=== PATIENT | male | born 1965 | race Caucasian/White ===

== ENCOUNTER 2022-12-03 03:33 | Day surgery (SDC) | payer BC, SELFPAY ==
[2022-10-29 12:21] VITALS: BMI 33.5
[2022-12-03 07:44] VITALS: BMI 34.4
[2022-12-03 07:45] VITALS: BP 145/85; PULSE 82; RESP 16; TEMP 36.2; O2SAT 98
[2022-12-03] MEDS: LACTATED RINGERS 1,000 ML 150 ML IV CONT (07:54)
--- NOTE | 2022-12-03 08:00 | P.HP_ITS ---
History of Present Illness History of Present Illness Consent: Risks, benefits, and alternatives have been discussed and questions answered. Patient agrees to proceed with procedure. Chief complaint: neoplasm screening Narrative: Brayan Ward is a 57 year old male Presents for screening colonoscopy. Patient's current weight appetite and bowel movements are normal. Patient denies abdominal pain. He has had no bleeding. Family history noncontributory. Previous colonoscopy 2009 was unremarkable. Review of Systems Review of Systems: Review of systems noncontributory. [facility] Past Medical History Medical History (Updated 12/03/22 @ 08:02 by Duong Mulligan MD) GERD (gastroesophageal reflux disease) Obstructive sleep apnea Family History Family History (Updated 09/19/17 @ 14:47 by DOCTOR UNKNOWN) Father Diabetes mellitus Family history of chronic obstructive pulmonary disease Mother Cerebrovascular accident Social History Social History Years smoked: 23 Smoking status: Current every day smoker Tobacco type: cigarettes Alcohol intake: current Drinks per week: 1 Substance use type: does not use Living arrangements: with family Spiritual care concerns: No Meds Home Medications and Allergies Home Medications Medication Instructions Recorded Confirmed Type pantoprazole 40 mg tablet,delayed See Rx Instructions .Route 10/12/22 12/03/22 Rx release .COMPLEX #90 tabs ezetimibe 10 mg tablet 10 mg PO DAILY 10/29/22 12/03/22 History metoprolol succinate 25 mg 25 mg PO DAILY 10/29/22 12/03/22 History tablet,extended release 24 hr multivit with minerals-iron 18 1 tablet PO DAILY 10/29/22 12/03/22 History mg-folic ac 400 mcg-vit K 25 mcg tablet (Adults Multivitamin) Allergies Allergy/AdvReac Type Severity Reaction Status Date / Time Penicillins Allergy Unknown Unknown Verified 12/03/22 07:42 Vital Signs Vital Signs - 24 hr 12/03/22 07:45 Temperature 97.2 F L Pulse Rate 82 Respiratory Rate 16 Blood Pressure 145/85 H Pulse Oximetry 98 Oxygen Delivery Room Air Exam Narrative: Physical exam reveals patient to be alert. Vital signs stable. HEENT exam is unremarkable. Patient is anicteric. Lungs are clear to auscultation and percussion. Heart is without murmur or extra sounds. Abdomen bowel sounds are present soft nontender with no organomegaly. Digital external rectal exam is normal. Assessment and Plan Assessment and plan (1) Encounter for screening colonoscopy: Code(s): Z12.11 - Encounter for screening for malignant neoplasm of colon Status: Acute Assessment and Plan: Patient presents today for screening colonoscopy. He appears to be at average risk for colon polyps. Further recommendations may be given after endoscopy.
--- NOTE | 2022-12-03 08:07 | WPDANESEPPF ---
Anes - Initial Pre Proc Eval Procedure: Operation Date: 12/03/22 08:30 Proposed Procedures p Screening Colonoscopy - Duong Mulligan MD Date/Time: 12/03/22 08:07 Surgeon: Duong Mulligan MD Pre Op Diagnosis: neoplasm screening Patient Data Age: 57 Gender: M Height: 1.73 m Weight: 102.7 kg Last Vital Signs Temp 36.2 C L 12/03/22 07:45 Pulse 82 12/03/22 07:45 Resp 16 12/03/22 07:45 BP 145/85 H 12/03/22 07:45 Pulse Ox 98 12/03/22 07:45 O2 Del Method Room Air 12/03/22 07:45 Allergies Allergy/AdvReac Type Severity Reaction Status Date / Time Penicillins Allergy Unknown Unknown Verified 12/03/22 07:42 Home Medications Medication Instructions Recorded Confirmed Type pantoprazole 40 mg tablet,delayed See Rx Instructions .Route 10/12/22 12/03/22 Rx release .COMPLEX #90 tabs ezetimibe 10 mg tablet 10 mg PO DAILY 10/29/22 12/03/22 History metoprolol succinate 25 mg 25 mg PO DAILY 10/29/22 12/03/22 History tablet,extended release 24 hr multivit with minerals-iron 18 1 tablet PO DAILY 10/29/22 12/03/22 History mg-folic ac 400 mcg-vit K 25 mcg tablet (Adults Multivitamin) Patient hx anesthesia problems: none Family hx anesthesia problems: none Results Review: All pre-operative results and documents have been reviewed as part of the pre-operative evaluation. [facility] Past Medical History Medical History (Updated 12/03/22 @ 08:09 by Jaime Garcia MD) Atrial fibrillation s/p ablation GERD (gastroesophageal reflux disease) HTN (hypertension) Hypercholesterolemia Obesity Obstructive sleep apnea Family History Family History (Updated 09/19/17 @ 14:47 by DOCTOR UNKNOWN) Father Diabetes mellitus Family history of chronic obstructive pulmonary disease Mother Cerebrovascular accident Social History Social History Years smoked: 23 Smoking status: Current every day smoker Tobacco type: cigarettes Alcohol intake: current Drinks per week: 1 Substance use type: does not use Living arrangements: with family Spiritual care concerns: No Anes - Eval Final PreProcedure Day of Procedure 12/03/22 08:07 Patient weight: obese Heart: regular rate and rhythm Lungs: clear to auscultation and normal air movement Airway: Mallampati scale class II Neurological: alert and oriented Last oral intake: >/= 8 hours ASA classification: III Emergent: no Anesthetic plan: proceed Anesthesia type and monitoring: general GIVS Results Review: All pre-operative results and documents have been reviewed as part of the pre-operative evaluation. Informed Consent: The patient's anesthetic plan and its attendant risks and benefits were discussed with the patient/family/POA. Questions were solicited and answers provided to the satisfaction of the patient/family/POA.
[2022-12-03] MEDS: SIMETHICONE ORAL SUSPENSION 20 MG/0.3 ML 30 ML BOTTLE 0.6 ML IRRIGATION (08:36)
--- NOTE | 2022-12-03 08:47 | SUR.OPER ---
dr diaz informed that ascending polyp was not retrieved. voiced understanding.
[2022-12-03 08:49] VITALS: BP 119/79; PULSE 72; RESP 21; O2SAT 93
[2022-12-03 08:59] VITALS: BP 113/74; PULSE 70; RESP 19; O2SAT 95
[2022-12-03 09:09] VITALS: BP 145/89; PULSE 75; RESP 22; O2SAT 97
== END 2022-12-03 09:15 | disposition home or self-care (01) ==
PROVIDERS: PCP Family Medicine; Visit Provider Internal Medicine Gastroenterology
PROC: 0DJD8ZZ Inspection of Lower Intestinal Tract, Via Natural or Artificial Opening Endoscopic (ICD-10-PCS; CPT 45378; principal; 2022-12-03 08:30)
DX: Z12.11 Encounter for screening for malignant neoplasm of colon (principal); D12.5 Benign neoplasm of sigmoid colon; K63.5 Polyp of colon; K57.30 Diverticulosis of large intestine without perforation or abscess without bleeding; K64.8 Other hemorrhoids; I10 Essential (primary) hypertension; E78.00 Pure hypercholesterolemia, unspecified; G47.33 Obstructive sleep apnea (adult) (pediatric); F17.210 Nicotine dependence, cigarettes, uncomplicated; E66.9 Obesity, unspecified; Z68.34 Body mass index [BMI] 34.0-34.9, adult
CPT/HCPCS: 45385; 88305; J2704; J7120

== ENCOUNTER 2023-03-07 18:52 | Emergency (ER) | payer BC, SELFPAY ==
[2023-03-07 18:57] VITALS: BP 144/85; PULSE 62; RESP 16; TEMP 36.3; O2SAT 100
--- NOTE | 2023-03-07 18:57 | ED.EYEPROB ---
HPI - Eye Problem General Chief complaint: Eye Problems Stated complaint: Lt Eye Irritation Time Seen by Provider: 03/07/23 18:57 Source: patient Mode of arrival: ambulatory Limitations: no limitations History of Present Illness HPI Narrative: 58-year-old male presents with complaint of left eye pain. States that he was sawing wood today, not wearing safety glasses, in thinks a piece flew into left eye. Injury happened approximately 10:00 a.m. today. 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 Reports vision change to left eye only due to pain and irritation. Reports redness, clear drainage. All systems reviewed and negative except as noted above. Related Data Home Medications Medication Instructions Recorded Confirmed ezetimibe 10 mg tablet 10 mg PO DAILY 10/29/22 03/07/23 metoprolol succinate 25 mg 25 mg PO DAILY 10/29/22 03/07/23 tablet,extended release 24 hr multivit with minerals-iron 18 1 tablet PO DAILY 10/29/22 03/07/23 mg-folic ac 400 mcg-vit K 25 mcg tablet (Adults Multivitamin) flash glucose scanning reader 03/07/23 03/07/23 (FreeStyle Aster 2 [place]) flash glucose sensor (FreeStyle 03/07/23 03/07/23 Aster 2 Sensor kit) Allergies Allergy/AdvReac Type Severity Reaction Status Date / Time Penicillins AdvReac Mild Rash Verified 03/07/23 18:57 Review of Systems Review of Systems: CONSTITUTIONAL: Denies fever, chills, or sweats. EYES: Denies visual changes . Reports redness redness, clear drainage, pain to left eye. ENT: Denies rhinorrhea, congestion, sore throat, or otalgia. CARDIOVASCULAR: Denies chest pain, palpitations, or edema. RESPIRATORY: Denies cough or dyspnea. GASTROINTESTINAL: Denies abdominal pain, nausea, vomiting, or diarrhea. GENITOURINARY: Denies dysuria or hematuria. SKIN: Denies rash or itching. MUSCULOSKELETAL: Denies back pain, joint pain, or myalgia. NEUROLOGIC: Denies headache, numbness, or weakness. PSYCHIATRIC: Denies anxiety or depression. All other systems reviewed are negative, except as documented in HPI. [facility] Past Medical History Medical History (Updated 03/07/23 @ 19:21 by Deanna Hinson NP) Atrial fibrillation s/p ablation GERD (gastroesophageal reflux disease) HTN (hypertension) Hypercholesterolemia Obesity Obstructive sleep apnea Family History Family History (Updated 09/19/17 @ 14:47 by DOCTOR UNKNOWN) Father Diabetes mellitus Family history of chronic obstructive pulmonary disease Mother Cerebrovascular accident Social History Social History Years smoked: 23 Smoking status: Current every day smoker Tobacco type: cigarettes Alcohol intake: current Drinks per week: 1 Substance use type: does not use Living arrangements: with family Spiritual care concerns: No Comments At time of signature, agree with nursing past medical, surgical, social and family history. There is no relevant family history pertinent to the presenting complaint. Exam Narrative: GENERAL: This is a well-nourished, well-developed patient, in no apparent distress. HEAD: normocephalic, atraumatic. EYES: PERRL. Sclera A conjunctiva erythematous the left eye with clear drainage. Vision is grossly intact. EARS: External ears normal NOSE: External nose normal NECK: Neck supple, non-tender without lymphadenopathy, masses or thyromegaly. CARDIOVASCULAR: Regular rate and rhythm without murmurs, gallops, or rubs. RESPIRATORY: Clear to auscultation. Breath sounds equal bilaterally. No wheezes, rales, or rhonchi. SKIN: warm, Dry, intact with no suspicious lesions or rash, good texture and turgor. NEURO: awake, alert, and oriented to person, place and time. There were no obvious focal neurologic abnormalities. EXTREMITIES: No joint tenderness, effusion, or edema noted. Course Course Level of Care: Express Care Visit Vital Signs Vital signs: Vital Signs Temperature 36.3 C L 03/07/23 18:57 Puls
== END 2023-03-07 19:22 | disposition home or self-care (01) ==
PROVIDERS: Emergency Provider Nurse Practitioner Family; PCP Family Medicine
DX: T15.02XA Foreign body in cornea, left eye, initial encounter (principal); X58.XXXA Exposure to other specified factors, initial encounter; F17.210 Nicotine dependence, cigarettes, uncomplicated; K21.9 Gastro-esophageal reflux disease without esophagitis; I10 Essential (primary) hypertension; E78.00 Pure hypercholesterolemia, unspecified; E66.9 Obesity, unspecified; Z68.32 Body mass index [BMI] 32.0-32.9, adult
CPT/HCPCS: 65220; 99213; A9270; G0463

== ENCOUNTER 2025-08-22 15:27 | Emergency (ER) | payer BC, SELFPAY ==
[2025-08-22 15:37] VITALS: BP 136/70; PULSE 81; RESP 18; TEMP 36.5; O2SAT 98
--- NOTE | 2025-08-22 15:37 | ED.WOUNDLAC ---
HPI - Wound/Laceration General Chief Complaint: Wound/Laceration Stated Complaint: cut finger Time Seen by Provider: 08/22/25 15:37 Source: patient Mode of arrival: ambulatory Limitations: no limitations History of Present Illness HPI narrative: 60 year-old male presents with laceration to right middle finger.Injury happened approx. 2 to 3 hrs ago. 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 Had taken the safety off of the sharp cutting mechanism. Bleeding controlled on arrival. ROM and distal NV intact. All systems reviewed and negative except as noted above. Related Data Home Medications ?Medication ?Instructions ?Recorded ?Confirmed ?Last Taken ?Type ezetimibe 10 mg tablet 10 mg PO DAILY 10/29/22 08/11/25 Unknown History Held on 01/13/23. Instructions: Changed physicians metoprolol succinate 25 mg 25 mg PO DAILY 10/29/22 08/11/25 Unknown History tablet,extended release 24 hr Held on 01/13/23. Instructions: Changed physicians multivit with minerals-iron 18 1 tablet PO DAILY 10/29/22 08/11/25 Unknown History mg-folic ac 400 mcg-vit K 25 mcg tablet (Adults Multivitamin) flash glucose scanning reader 03/07/23 08/11/25 Unknown History (FreeStyle Aster 2 [place]) flash glucose sensor (FreeStyle 03/07/23 08/11/25 Unknown History Aster 2 Sensor kit) finasteride 5 mg tablet 5 mg PO DAILY 05/02/24 08/11/25 Unknown History pantoprazole 40 mg tablet,delayed 40 mg PO QAM 05/02/24 08/11/25 Unknown History release Allergies Allergy/AdvReac Type Severity Reaction Status Date / Time Penicillins Allergy Mild Rash Verified 08/22/25 15:37 [facility] Past Medical History Medical History Atrial fibrillation s/p ablation Hypercholesterolemia HTN (hypertension) Obesity GERD (gastroesophageal reflux disease) Obstructive sleep apnea Surgical History Surgical History History of shoulder surgery History of foot surgery History of carpal tunnel release of both wrists History of right knee joint replacement Family History Family History Father Diabetes mellitus Family history of chronic obstructive pulmonary disease Mother Cerebrovascular accident Social History Social History (Updated 08/07/25 @ 15:06 by Sharri Roy [facility]) Years smoked: 23 Smoking status: Former smoker Tobacco type: cigarettes Second hand tobacco smoke exposure: No Alcohol intake: never Substance use: never Substance use type: does not use Do You Feel Safe in your Home?: Yes Lack of Transportation: No Lack of Food: Never True Current Housing: I Have Housing Concerned About Future Housing: No Difficulty Paying Gas/Electric Bills: No Difficulty Paying for Meds: No Currently Unemployed: No Education: High School Diploma/GED Difficulty w/ Childcare or Family Care: No Living arrangements: with family Occupation/Education: occupation 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 There is no relevant family history pertinent to the presenting complaint. Exam Narrative: GENERAL: This is a well-nourished, well-developed patient, in no apparent distress. HEAD: normocephalic, atraumatic. EYES: PERRL. Sclera clear/white. Vision is grossly intact. EARS: External ears normal NOSE: External nose normal NECK: Neck supple, non-tender without lymphadenopathy, masses or thyromegaly. CARDIOVASCULAR: Regular rate and rhythm without murmurs, gallops, or rubs. RESPIRATORY: Clear to auscultation. Breath sounds equal bilaterally. No wheezes, rales, or rhonchi. SKIN: warm, Dry, intact with no suspicious lesions or rash, good texture and turgor. 2cm laceration to posterior aspect R middle finger. NEURO: awake, alert, and oriented to person, place and time. There were no obvious focal neurologic abnormalities. EXTREMITIES: No joint tenderness, effusion, or edema noted. Extrem: Hand/finger images:  1. laceration Course Course Level of Care: Express Care Visit Vital Signs Vital signs: Vital Signs Temperature 36.5 C 08/22/25 15:37 Pulse Rate 81 08/22/25 15:37 Respiratory Rate 18 08/22/25 15:37 Blood Pressure 136/70 08/22/25 15:37 Pulse Oximetry 98 08/22/25 15:37 Oxygen Delivery Room Air 08/22/25 15:37 Temperature 36.5 C 08/22/25 15:37 Pulse Rate 81 08/22/25 15:37 Respiratory Rate 18 08/22/25 15:37 Blood Pressure 136/70 08/22/25 15:37 Pulse Oximetry 98 08/22/25 15:37 Oxygen Delivery Room Air 08/22/25 15:37 Reviewed Procedures Laceration Laceration 1: Date: 08/22/25 Time: 16:05 Site: hand (middle finger) Side (If applicable): right Size (cm): 2 Description: irregular Depth: simple, single layer Local Anesthetic: lidocaine 1% Amount of anesthesia used (mL): 3 Pre-repair: wound explored and irrigated ====== Skin Level ====== Skin layer closed with: nylon Size (cm): 4-0 Number of sutures: 7 Technique: simple, interrupted ====== Subcutaneous Layer ====== ====== Muscle Layer ====== ====== Tendon Layer ====== MDM - Wound/Laceration MDM Narrative Medical decision making narrative: wound repaired with sutures. Patient tolerated well. Range of motion and distal neurovascularly intact pre and postprocedure. Educated on suture care and follow-up for suture removal. Discharge Plan Discharge Clinical Impression: Laceration of right middle finger Qualifiers: Encounter type: initial encounter Damage to nail status: without damage Foreign body presence: without foreign body Qualified Code(s): S61.212A - Laceration without foreign body of right middle finger without damage to nail, initial encounter Patient Disposition: Home Condition: Stable Instructions: Antibiotic Form, Care For Your Stitches (ED) Additional Instructions: Follow-up in 7-10 days for suture removal. Keep wound clean and dry. If you have signs of infection such as redness, warmth, swelling, drainage follow-up with your primary care physician. Patient Language: [place] Prescriptions: No Action (DME) FreeStyle Aster 2 Sensor Kit MISCELLANEOUS (DME) FreeStyle Aster 2 [place] Misc MISCELLANEOUS pantoprazole 40 mg tablet,delayed release (DR/EC) 40 mg PO QAM finasteride 5 mg tablet 5 mg PO DAILY Adults Multivitamin 18 mg iron-400 mcg-25 mcg Tablet 1 tablet PO DAILY metoprolol succinate 25 mg tablet extended release 24 hr 25 mg PO DAILY ezetimibe 10 mg tablet 10 mg PO DAILY diclofenac sodium 75 mg tablet,delayed release (DR/EC) 75 mg PO BID Qty: 60 2RF Follow-up/Referrals: Tosha,Jonathan Jaquez MD [Primary Care Provider, Unknown] Time of Disposition: 16:12
[2025-08-22] MEDS: LIDOCAINE 1% LOCAL INJ 2 ML AMPUL 4 ML INFILTRATE (15:52)
[2025-08-22] MEDS: TETANUS,DIPHTHERIA,AC PERTUSSIS ADULT (0.5 ML) BOOSTRIX IM (15:53)
--- OUTSIDE RECORDS SUMMARY | 2025-08-22 17:30 | XMS_ITS | Clinical Summary ---
Author Organization [address] Address [address] [place] [id number] Care Team Providers Care Sliver Lapper Name Role Phone Jonathan Givens MD Primary Care Provider [phone] Allergies Active Allergy Reactions Criticality Noted Date Comments Atorvastatin Joint pain Low 10/21/2022 Caused knee pain Penicillins Other (See comments),Unknown Low 2017 As a child Medications multivit with minerals/lutein (MULTIVITAMIN 50 PLUS ORAL) multivitamin 0 Active finasteride (PROSCAR) 5 mg tablet Take 1 tablet (5 mg total) by mouth daily 3 Active aspirin 81 mg enteric coated tablet Take 1 tablet (81 mg total) by mouth daily Active clindamycin (CLEOCIN) 300 mg capsule Take 1 capsule (300 mg total) by mouth 4 (four) times a day Active diclofenac DR (VOLTAREN) 75 mg EC tablet Take 1 tablet (75 mg total) by mouth 2 (two) times a day 4 Active metoprolol XL (TOPROL-XL) 25 mg extended release tablet TAKE 1 TABLET DAILY 90 tablet [address] (PROTONIX) 40 mg EC tablet TAKE 1 TABLET DAILY 100 tablet 1 5 Active ezetimibe (ZETIA) 10 mg tablet TAKE 1 TABLET DAILY 100 tablet 1 5 Active Active Problems Problem Noted Date Diagnosed Date Benign prostatic hyperplasia with urinary freque ncy 09/22/2023 Weight gain 07/29/2023 Arthralgia of both knees 02/04/2023 023 Postoperative care for cataract 11/09/2022 Bicipital tenosynovitis 11/09/2022 Carpal tunnel syndrome 11/09/2022 Degenerative joint disease of shoulder region Disorder of rotator cuff 11/09/2022 Essential hypertension 08/25/2022 Gastroesophageal reflux disease without esophagi tis 08/25/2022 Mixed hyperlipidemia 12/09/2020 Tobacco dependence 12/09/2020 ASHD (arteriosclerotic heart disease) 11/23/2019 Resting tremor 08/21/2019 SVT (supraventricular tachycardia) 08/21/2019 Irregular heart rate 07/27/2018 Resolved Problems Problem Noted Date Diagnosed Date Resolved Date Osteoarthritis 11/09/2022 08/17/2024 Hyperglycemia 10/21/2022 08/17/2024 Elevated BP without diagnosis of hypertension 09/01/20 20 08/17/2024 Overweight 08/21/2019 08/17/2024 Encounters Date Type Department Care Team Description 08/22/2025 Results Follow-Up [facility] at [address] [place] [address] Danna Stephens PA Comprehensive metabolic panel, CBC with auto differential, Lipid panel from Last 3 Months Immunizations Immunization Administration Dates Next Due Influenza, Unspecified 08/17/2024(Deferr ed: Patient Refused),08/07/2023(Deferred: Patient decision),08/07/2023(Deferred: Patient Refused),11/07/2021(Deferred: Patient Refused),11/07/2020(Deferred: Patient Refused) Surgical History Surgery Date Site/Laterality Comments CARPAL TUNNEL RELEASE ROTATOR CUFF REPAIR 11/07/2000 - 12/07/2000 Bilateral VASECTOMY 1993 JOINT REPLACEMENT 10/11/2023 Right TKR Medical History Medical History Date Comments GERD (gastroesophageal reflux disease) 2008 Sleep apnea Family History Medical History Relation Name Comments Cancer Mother's Brother Markel Solano Relation Name Status Comments Father Mother Mother's Brother Markel Solano Social History Tobacco Use Types Packs/Day Years Used Date Smoking Tobacco: Former Cigarettes 1.3 25 0 07/23/1998 - 07/23/2023 Smokeless Tobacco: Never Tobacco Cessation:Counseling Given: Not Answered AUDIT-C Answer Date Recorded Q1: How often do you have a drink containing alc ohol? Monthly or less 09/22/2023 Q2: How many drinks containi ng alcohol do you have on a typical day when you are drinking? 1 or 2 09/22/2023 Q3: How often do you have si x or more drinks on one occasion? Never 09/22/2023 PHQ-2 Answer Date Recorded PHQ-2 Total Score (If total score is 3 or more points, staff should administer the PHQ-9) 0 05/21/2025 Sex and Gender Information Value Date Recorded Sex Assigned at Not on file Legal Sex Male 12:43 AM BOSS DYER Gender Identity Male 11/07/2021 12:33 PM BOSS DYER Sexual Orientation Straight 11/07/2021 12 :33 PM [employer] Obstetrics History Last Filed Vital Signs Vital Sign Reading Time Taken Comments Blood Pressure 138/96 05/21/2025 4:48 PM CDT Pulse 68 05/21/2025 4:48 PM CDT Temperature 36.6 C (97.8 F) 05/21/2025 4:48 PM CDT Respiratory Rate 16 11/25/2023 4:20 PM BOSS DYER Oxygen Saturation 96% 05/21/2025 4:48 PM CDT Inhaled Oxygen Concentration - - Weight 100.2 kg (220 lb 14.4 oz) 05/21/2025 4:48 PM CDT Height 172.7 cm (5' 8) 05/21/2025 4:48 PM CDT Body Mass Index 33.59 05/21/2025 4:48 PM CDT Plan of Treatment Health Maintenance Due Date Last Done Comments Hepatitis C Screening 1965 DTaP/Tdap/Td Vaccine (1 - Tdap) 01/08/1976 Hepatitis B Screening 1983 Lung Cancer Screening 2015 Zoster Vaccine (1 of 2) 2015 Prostate Cancer Screening-PSA 04/23/2025 04/23/2023, 07/08/2022 Influenza Vaccine (#1) 2025 Depression Screening 05/21/2026 05/21/2025, 09/14/2024, 08/17/2024, Additional history exists Regular Well Visit/Exam 18-64 05/21/2026 05/21/2025, 02/18/2022 Colon Cancer Screening-Colonoscopy 12/03/2032 12/03/2022 Pneumococcal vaccine <65 Aged Out No longer eligible based on patient's age to complete this topic Procedures Procedure Name Priority Date/Time Associated Diagnosis Comments HEMOGLOBIN A1C Routine 08/21/2025 6:30 AM CDT TEST AUTHORIZATION Routine 08/21/2025 6: 30 AM CDT LIPID PANEL Routine 08/21/2025 6:30 AM CDT Annual physical exam CBC WITH AUTO DIFFERENTIAL Routine 08/21/2025 6:30 AM CDT Annual physical exam COMPREHENSIVE METABOLIC PANEL Routine 08/21/2025 6:30 AM CDT Annual physical exam PSA SCREEN Routine 04/23/2023 7:46 AM CDT COLONOSCOPY Routine 12/03/2022 from Last 3 Months or Most Recently Relevant to Health Maintenance Results * TEST AUTHORIZATION (08/21/2025 6:30 AM CDT) Test name HEMOGLOBIN A1c [facility] TEST CODE: [id number] [facility] CLIENT CONTACT: LUCAS [facility] Report Always Message Signature [facility] Comment: The laboratory testing on this patient was verbally requested or confirmed by the ordering physician or his or her authorized sales training representative after contact with an employee of [facility]. Federal regulations require that we maintain on file written authorization for all laboratory testing. Accordingly we are asking that the ordering physician or his or her authorized sales training representative sign a copy of this report and promptly return it to the client evaluator. Signature: Comment [facility] Comment: Fax number: [phone] 08/21/2025 6:30 AM CDT 08/21/2025 6:31 AM CDT Narrative [facility] - 08/22/2025 12:52 PM CDT FASTING:YES FASTING: YES us Jonathan Givens MD LAB BLOOD ORDERABLES Final Re sult [facility] [address] [place] [phone] * CBC with auto differential (08/21/2025 6:30 AM CDT) [facility] WBC 8.2 3.8 - 10.8 Thousand/u L [facility] RBC, POC 5.14 4.20 - 5.80 Million/uL [facility] Hgb 15.2 13.2 - 17.1 g/dL [facility] Hct 46.8 38.5 - 50.0 % [facility] MCV 91.1 80.0 - 100.0 fL [facility] MCH 29.6 27.0 - 33.0 pg [facility] MCHC 32.5 32.0 - 36.0 g/dL [facility] Comment: For adults, a slight decrease in the calculated MCHC value (in the range of 30 to 32 g/dL) is most likely not clinically significant; however, it should be interpreted with caution in correlation with other red cell parameters and the patient's clinical condition. Rdw 12.2 11.0 - 15.0 % [facility] Platelets 309 140 - 400 Thousand/u L [facility] MPV 10.4 7.5 - 12.5 fL [facility] Neutrophils, abs 4,936 1,500 - 7,800 cells/uL [facility] Lymphocytes, abs 2,312 850 - 3,900 cells/uL [facility] Monocyte abs 705 200 - 950 cells/uL [facility] Eosinophils, abs 164 15 - 500 cells/uL [facility] Basophils, abs 82 0 - 200 cells/uL [facility] Neutrophils 60.2 % [facility] Lymphocyte pct 28.2 % [facility] Monocytes 8.6 % [facility] Eosinophils 2.0 % [facility] Basophils 1.0 % [facility] Blood 08/21/2025 6:30 AM CDT 08/21/2025 6:31 AM CDT Narrative [facility] - 08/22/2025 12:52 PM CDT FASTING:YES FASTING: YES Jonathan Givens MD LAB BLOOD ORDERABLES Final Re sult Performing Organization Address [facility] de Phone Number [facility] [address] [place] [address] * (ABNORMAL) Hemoglobin A1c (08/21/2025 6:30 AM CDT) Hgb A1C 6.1(H) <5.7 % [facility] Comment: For someone without known diabetes, a hemoglobin A1c value between 5.7% and 6.4% is consistent with prediabetes and should be confirmed with a follow-up test. For someone with known diabetes, a value <7% indicates that their diabetes is well controlled. A1c targets should be individualized based on duration of diabetes, age, comorbid conditions, and other considerations. This assay result is consistent with an increased risk of diabetes. Currently, no consensus exists regarding use of hemoglobin A1c for diagnosis of diabetes for children. 08/21/2025 6:30 AM CDT 08/21/2025 6:31 AM CDT Narrative [facility] - 08/22/2025 12:52 PM CDT FASTING:YES FASTING: YES Jonathan Givens MD LAB BLOOD ORDERABLES Final Re sult Performing Organization Address [facility] Co de Phone Number [facility] [address] [place] [address] * (ABNORMAL) Lipid panel (08/21/2025 6:30 AM CDT) Cholesterol 197 <200 mg/dL [facility] HDL 68 > OR = 40 mg/dL [facility] Triglycerides 116 <150 mg/dL [facility] LDL 108(H) mg/dL (calc) [facility] Comment: Reference range: <100 Desirable range <100 mg/dL for primary prevention; <70 mg/dL for patients with CHD or diabetic patients with > or = 2 CHD risk factors. LDL-C is now calculated using the Paresh-Burns calculation, which is a validated novel method providing better accuracy than the Friedewald equation in the estimation of LDL-C. Paresh SS et al. KORY. 2013;310(64): 2484-7926 (http://education.Spoonfed/faq/NUW161) Chol/HDL ratio 2.9 <5.0 (calc) [facility] Non-HDL, (LDL+VLDL) 129 <130 mg/dL (calc) [facility] Comment: For patients with diabetes plus 1 major ASCVD risk factor, treating to a non-HDL-C goal of <100 mg/dL (LDL-C of <70 mg/dL) is considered a therapeutic option. Blood 08/21/2025 6:30 AM CDT 08/21/2025 6:31 AM CDT Narrative [facility] - 08/22/2025 12:52 PM CDT FASTING:YES FASTING: YES Jonathan Givens MD LAB BLOOD ORDERABLES Final Re sult [facility] [address] [place] [address] * (ABNORMAL) Comprehensive metabolic panel (08/21/2025 6:30 AM CDT) [facility] Glucose 130(H) 65 - 99 mg/dL [facility] Comment: Fasting reference interval For someone without known diabetes, a glucose value >125 mg/dL indicates that they may have diabetes and this should be confirmed with a follow-up test. BUN 25 7 - 25 mg/dL [facility] Creatinine 1.03 0.70 - 1.35 mg/dL [facility] eGFR 83 > OR = 60 mL/min/1.7 3m2 [facility] BUN/creat ratio SEE NOTE: 6 - 22 (calc) [facility] Comment: Not Reported: BUN and Creatinine are within reference range. Sodium 140 135 - 146 mmol/L [facility] Potassium, pl 4.6 3.5 - 5.3 mmol/L [facility] Chloride 103 98 - 110 mmol/L [facility] CO2 29 20 - 32 mmol/L [facility] Calcium 9.5 8.6 - 10.3 mg/dL [facility] Protein, sr 6.3 6.1 - 8.1 g/dL [facility] Albumin 4.3 3.6 - 5.1 g/dL [facility] GLOBULIN 2.0 1.9 - 3.7 g/dL (calc) [facility] Alb/glob ratio 2.2 1.0 - 2.5 (calc) [facility] Bilirubin, total 0.4 0.2 - 1.2 mg/dL [facility] Alk phos 58 35 - 144 U/L [facility] AST 23 10 - 35 U/L [facility] ALT (SGPT) 33 9 - 46 U/L [facility] Blood 08/21/2025 6:30 AM CDT 08/21/2025 6:31 AM CDT Narrative [facility] - 08/22/2025 12:52 PM CDT FASTING:YES FASTING: YES Jonathan Givens MD LAB BLOOD ORDERABLES Final Re sult [facility] [address] [address] [facility] [place] [address] * (ABNORMAL) PSA screen (04/23/2023 7:46 AM CDT) PSA 4.86(H) < OR = 4.00 ng/mL [facility] Comment: The total PSA value from this assay system is standardized against the WHO standard. The test result will be approximately 20% lower when compared to the equimolar-standardized total PSA ([facility] [place]). Comparison of serial PSA results should be interpreted with this fact in mind. This test was performed using the Siemens chemiluminescent method. Values obtained from different assay methods cannot be used interchangeably. PSA levels, regardless of value, should not be interpreted as absolute evidence of the presence or absence of disease. 04/23/2023 7:46 AM CDT 04/23/2023 7:46 AM CDT Narrative [facility] - 04/24/2023 10:42 AM CDT FASTING:YES FASTING: YES Jonathan Givens MD LAB BLOOD ORDERABLES Final Re sult [facility] [address] [address] [facility] [place] [address] * Colonoscopy (12/03/2022) Anatomical Region Laterality Modality Other Historical Provider ENDOSCOPY PROCEDURES Suzi l Result from Last 3 Months or Most Recently Relevant to Health Maintenance Insurance Measy OOS Measy O[employer] Care Teams Sliver Lapper Relationship Specialty Start Date End Date Jonathan Givens MD PCP - General Family Medicine 02/16/22
--- OUTSIDE RECORDS SUMMARY | 2025-08-22 17:30 | XMS_ITS | Encounter Summary ---
Author Organization [facility] Address [address] [place] [address] Care Team Providers Care Personnel Generalist Manager Name Role Phone Ck Thomson MD Unavailable [phone] Jonathan Givens MD Primary Care Provider Encounter Details Date Type Department Care Team (Late st Contact Info) Description 07/19/2022 [facility] [address] [address] Chaz Mendoza MA Social History Tobacco Use Types Packs/Day Years Used Date Smoking Tobacco: Every Day Cigarettes 1.5 28 Smokeless Tobacco: Never Comments:30 cigarettes a day Alcohol Use Standard Drinks/Week Comments Yes 0 (1 standard drink = 0.6 oz pur e alcohol) occ Sex and Gender Information Value Date Recorded Sex Assigned at Not on file Legal Sex Male 1:37 PM CDT Gender Identity Not on file Sexual Orientation Not on file Occupation Industry Job Start Date Job End Date Not on file Not on file Not on file Not on file COVID-19 Exposure Response Date Recorded In the last 10 days, have yo u been in contact with someone who was confirmed or suspected to have Coronavirus/COVID-19? No / Unsure 07/06/2022 7:29 AM CDT documented as of this encounter Functional Status * RETIRED Are you deaf or do you have serious difficulty hearing Answer Date of Assessment Author Status No 06/26/2019 12:00 PM CDT Acti ve * RETIRED Are you blind or do you have serious difficulty seeing, even when wearing glasses? Answer Date of Assessment Author Status No 06/26/2019 12:00 PM CDT Acti ve * Do you have serious difficulty walking or climbing stairs? Answer Date of Assessment Author Status No 06/26/2019 12:00 PM CDT Bhavani Mathias RN Active * Do you have difficulty dressing or bathing? Answer Date of Assessment Author Status No 06/26/2019 12:00 PM CDT Bhavani Mathias RN Active * Because of a physical, mental, or emotional condition, do you have difficulty doing errands alone such as visiting a doctor's office or shopping? Answer Date of Assessment Author Status No 06/26/2019 12:00 PM CDT Bhavani Mathias RN Active documented as of this encounter Mental Status * Because of a physical, mental, or emotional condition, do you have serious difficulty concentrating, remembering, or making decisions? Answer Entry Date Author Status No 06/26/2019 12:00 PM CDT Bhavani Mathias RN Active documented in this encounter Plan of Treatment Not on file documented as of this encounter Procedures Procedure Name Priority Date/Time Associated Diagnosis Comments COMPREHENSIVE METABOLIC PANEL Routine 01/25/2024 LIPID PANEL Routine 01/25/2024 COMPREHENSIVE METABOLIC PANEL Routine 04/23/2023 LIPID PANEL Routine 04/23/2023 CBC, MANUAL DIFF Routine 04/23/2023 THYROXINE, TOTAL Routine 04/23/2023 THYROID STIM HORMONE TSH Routine 04/23/2023 CATECHOLAMINES URINE 24 HR Routine 07/10/2022 VMA URINE 24 HR Routine 07/10/2022 VMA URINE 24 HR Routine 07/10/2022 METANEPHRINES URINE 24 HR Routine 07/10/2022 documented in this encounter Results * LIPID PANEL (01/25/2024) CHOLESTEROL 165 HDL 69 TRIGLYCERIDES 73 NON HDL CHOLESTEROL 96 LDL (CALCULATED) 81 01/25/2024 [facility] History Genericprovider LABORATORY Final Result * COMPREHENSIVE METABOLIC PANEL (01/25/2024) SODIUM S/P/B 143 POTASSIUM S/P/B 4.3 CO2 30 CHLORIDE S/P/B 103 GLUCOSE 133 mg/dL CALCIUM S/P/B 9.8 BUN 22 CREATININE S/P/B 1.0 0.7 - 1.3 EGFR NON-AFR. AMER. 87 <=90 ALKALINE PHOSPHATASE S/P/B 62 ALT 26 AST 18 BILIRUBIN TOTAL S/P/B 0.5 ALBUMIN S/P/B 4.4 3.5 - 5.0 TOTAL PROTEIN S/P/B 6.4 GLOBULIN 2.0 01/25/2024 Count includes the [facility] Genericprovider LABORATORY Final Result * THYROXINE, TOTAL (04/23/2023) TOTAL T4 5.6 04/23/2023 Result [facility] History Genericprovider LABORATORY Final Result * COMPREHENSIVE METABOLIC PANEL (04/23/2023) SODIUM S/P/B 140 GLUCOSE 122 mg/dL AST 25 BUN 20 CREATININE S/P/B 0.98 0.7 - 1.3 CALCIUM S/P/B 9.5 POTASSIUM S/P/B 4.7 CHLORIDE S/P/B 106 ALT 33 GFR ESTIMATE 89 Narrative Resulting Agency Comment Default History Genericprovider LABORATORY Edited Result - Final * LIPID PANEL (04/23/2023) CHOLESTEROL 205 TRIGLYCERIDES 88 HDL 59 LDL (CALCULATED) 127 NON HDL CHOLESTEROL 146 Narrative Resulting Agency Comment [facility] History Genericprovider LABORATORY Edited Result - Final * CBC, MANUAL DIFF (04/23/2023) WBC 7.3 HGB 15.9 HCT 48.1 PLT 303 Narrative Resulting Agency Comment Default History Genericprovider LABORATORY Edited Result - Final * THYROID STIM HORMONE, TSH (04/23/2023) TSH 1.33 Narrative Resulting Agency Comment Default History Genericprovider LABORATORY Edited Result - Final * CATECHOLAMINES URINE 24 HR (07/10/2022) EPINEPHRINE (U) 7 2 - 24 NOREPINEPHRINE URINE/24H 73 15 - 100 TOTAL CATECHOLAMINES S/P/B 80 26 - 121 DOPAMINE URINE/24H 232 52 - 480 URINE SPECIMEN / Unknown 07/10/2022 [facility] URINE ORDERABLES Final Resul t * VMA URINE 24 HR (07/10/2022) VANILLYLMANDELIC ACID 24 HR URINE 3.6 <=6.0 URINE SPECIMEN / Unknown 07/10/2022 [facility] URINE ORDERABLES Final Resul t * METANEPHRINES URINE 24 HR (07/10/2022) NORMETANEPHRINE (U) 24 HRS 468 122 - 676 METANEPHRINES TOTAL (U) 610 224 - 832 METANEPHRINE (U) 24 HR 142 90 - 315 URINE SPECIMEN / Unknown 07/10/2022 [facility] URINE ORDERABLES Final Resul t * VMA URINE 24 HR (07/10/2022) VANILLYLMANDELIC ACID 24 HR URINE 3.6 <=6.0 URINE SPECIMEN / Unknown 07/10/2022 [facility] URINE ORDERABLES Final Resul t documented in this encounter Visit Diagnoses Not on filedocumented in this encounter Additional Health Concerns Infection Onset Date Last Indicated Resolved Time COVID-19 Rule Out 09/10/2022 09/10/2022 09/10/2022 11:30 AM CDT documented as of this encounter Care Teams Personnel Generalist Manager Relationship Specialty Start Date End Date Jonathan Givens MD [address] [facility] [address] [place] [address] PCP - General FAMILY PRACTICE 03/08/22 Ck Thomson MD [address] [facility] [address] [place] [phone] [place] [employer] CARDIOVASCULAR DISEASE 07/26/18 documented as of this encounter
--- OUTSIDE RECORDS SUMMARY | 2025-08-22 17:30 | XMS_ITS | Clinical Summary ---
Author Organization [facility] Address [facility] [place] [address] Care Team Providers Care Painter Tumbling Barrel Name Role Phone Ck Thomson MD Unavailable Jonathan Givens MD Primary Care Provider [phone] Allergies Active Allergy Reactions Criticality Noted Date Comments Atorvastatin Joint Pain 10/21/2022 Caused knee pain Penicillins Unknown,Other (see comment) Low 018 As a child Medications pantoprazole 40 MG tablet Take 1 tablet (40 mg total) by mouth daily. 30 tablet 07/27/2018 Active Multiple Vitamin (DAILY VITAMIN) Tab Take 1 tablet by mouth daily. 30 tablet 07/27/2018 Active ezetimibe (ZETIA) 10 MG tablet Take 1 tablet (10 mg total) by mouth daily. 08/25/2022 Active metoprolol succinate ER (TOPROL-XL) 25 MG 24 hr tablet Take 1 tablet (25 mg total) by mouth daily. 02/20/2023 Active finasteride (PROSCAR) 5 MG tablet Take 1 tablet (5 mg total) by mouth daily. 07/26/2023 Active ibuprofen (MOTRIN) 200 MG tablet Take 1 tablet (200 mg total) by mouth daily. Active albuterol sulfate HFA 108 (90 Base) MCG/ACT inhaler Inhale 2 puffs into the lungs. 11/25/2023 Active aspirin EC (ECOTRIN) 81 MG tablet Take 1 tablet (81 mg total) by mouth daily. Active Active Problems Problem Noted Date Diagnosed Date Hyperglycemia 10/21/2022 Status post radiofrequency ablation for arrhythm ia 10/18/2022 Essential hypertension 08/25/2022 Mixed hyperlipidemia 12/09/2020 Tobacco dependence 12/09/2020 Elevated BP without diagnosis of hypertension ASHD (arteriosclerotic heart disease) 11/23/2019 SVT (supraventricular tachycardia) 08/21/2019 Overweight 08/21/2019 Resting tremor 08/21/2019 Irregular heart rate 07/27/2018 Resolved Problems Problem Noted Date Diagnosed Date Resolved Date Imbalance 11/23/2019 07/02/2022 Unstable angina 06/26/2019 07/02/2022 Chest pain in adult 06/26/2019 07/02/20 Chest pain at rest 07/27/2018 Pressure in chest 07/27/2018 07/02/2022 Palpitations 07/27/2018 07/02/2022 Family History Relation Status Comments Brother Alive Father Maternal Grandfather Maternal Grandmother Mother Paternal Grandfather Paternal Grandmother Sister 1 Alive Sister 2 Alive Sister 3 Alive Social History Tobacco Use Types Packs/Day Years Used Date Smoking Tobacco: Every Day Cigarettes 1 28 Smokeless Tobacco: Never Tobacco Cessation:Ready to Q uit: Not Asked; Counseling Given: Not Answered Comments:20 cigarettes a day Alcohol Use Standard Drinks/Week [...] file Not on file Not on file Last Filed Vital Signs Vital Sign Reading Time Taken Comments Blood Pressure 142/98 02/03/2024 10:20 AM CDT Pulse 56 02/03/2024 10:20 AM CDT Temperature 36.8 C (98.2 F) 08/22/2023 12:36 PM CDT Respiratory Rate 20 08/22/2023 3:45 PM CDT Oxygen Saturation 99% 02/03/2024 10:20 AM CDT Inhaled Oxygen Concentration - - Weight 102.5 kg (226 lb) 02/03/2024 10:20 AM CDT Height 172.7 cm (5' 8) 02/03/2024 10:20 AM CDT Body Mass Index 34.36 02/03/2024 10:20 AM CDT Plan of Treatment Health Maintenance Due Date Last Done Comments Colorectal Cancer Screening Colonoscopy (10 Years) 1965 Annual Physical 01/08/1968 Hepatitis C 1983 DTaP, Tdap and Td Vaccines (1 - Tdap) 01/08/1984 Pneumococcal Vaccine: 50+ Years (1 of 2 - PCV) 01/08/1984 Zoster Vaccines (1 of 2) 2015 RSV Immunization or 60+ Years (1 - Risk 60-74 years 1-dose series) 2025 ASCVD LDL 01/24/2025 01/25/2024, 11/2 , 04/23/2023, Additional history exists COVID-19 Vaccine ( - 2023- season) 2025 Influenza Adult (#1) 2025 Meningococcal B Vaccine Aged Out No l onger eligible based on patient's age to complete this topic Meningococcal Vaccine Aged Out No jamal dimitry eligible based on patient's age to complete this topic RSV Immunizations Under 20 Months Aged Out No longer eligible based on patient's age to complete this topic Procedures Procedure Name Priority Date/Time Associated Diagnosis Comments LIPID PANEL Routine 01/25/2024 from Last 3 Months or Most Recently Relevant to Health Maintenance Results * LIPID PANEL (01/25/2024) CHOLESTEROL 165 HDL 69 TRIGLYCERIDES 73 NON HDL CHOLESTEROL 96 LDL (CALCULATED) 81 01/25/2024 us Default History Genericprovider LABORATORY Final Result from Last 3 Months or Most Recently Relevant to Health Maintenance Insurance [facility] Advance Directives * Full Code (Latest Code Status on File) Date Activated Date Inactivated Comments 08/22/2023 12:42 PM 08/22/2023 6:08 PM * Full Code Date Activated Date Inactivated Comments 09/10/2022 1:46 PM 09/10/2022 7:07 PM * Full Code Date Activated Date Inactivated Comments 06/26/2019 3:32 PM 06/27/2019 2:39 PM Care Teams Painter Tumbling Barrel Relationship Specialty Start Date End Date Jonathan Givens MD [address] [facility] [address] [place] [address] PCP - General FAMILY PRACTICE 03/08/22 Ck Thomson MD 3 [facility] [address] [place] [address] [place] Housekeeping Aid CARDIOVASCULAR DISEASE 07/26/18
--- OUTSIDE RECORDS SUMMARY | 2025-08-22 17:30 | XMS_ITS | Encounter Summary ---
Author Organization [facility] Address [address] [place] [address] Care Team Providers Care Metal Work Duct Installer Name Role Phone Michael Cardenas MD Primary Care Provider [phone] Ck Thomson MD Unavailable [phone] Jonathan Givens MD Primary Care Provider [phone] Encounter Details Date Type Department Care Team (Late st Contact Info) Description 07/27/2018 Abstract [facility] at [address] [id number] Chaz Mendoza [place] Social History Tobacco Use Types Packs/Day Years Used Date Smoking Tobacco: Every Day Cigarettes Smokeless Tobacco: Never Alcohol Use Standard Drinks/Week Comments Yes 0 (1 standard drink = 0.6 oz pur e alcohol) Sex and Gender Information Value Date Recorded Sex Assigned at Not on file Legal Sex Male 1:37 PM CDT Gender Identity Not on file Sexual Orientation Not on file documented as of this encounter Plan of Treatment Not on file documented as of this encounter Procedures Procedure Name Priority Date/Time Associated Diagnosis Comments CBC (OUTSIDE LAB) Routine 07/22/2018 BASIC METABOLIC PANEL Routine 07/22/2018 documented in this encounter Results * BASIC METABOLIC PANEL (07/22/2018) SODIUM S/P/B 141 POTASSIUM S/P/B 3.8 CO2 24 CHLORIDE S/P/B 107 GLUCOSE 131 mg/dL CALCIUM S/P/B 9.1 BUN 20 CREATININE S/P/B 1.15 0.7 - 1.3 EGFR AFR. AMER. 84 EGFR NON-AFR. AMER. 73 <=90 07/22/2018 us Doc [facility] Abstract LABORATORY Final Result * CBC (OUTSIDE LAB) (07/22/2018) WBC 13.10 HGB 16.4 HCT 47 PLT 341 07/22/2018 us Doc [facility] Abstract LAB-OUTSIDE/ABSTRACTED Final Result documented in this encounter Visit Diagnoses Not on filedocumented in this encounter Additional Health Concerns Infection Onset Date Last Indicated Resolved Time COVID-19 Rule Out 09/10/2022 09/10/2022 09/10/2022 11:30 AM CDT documented as of this encounter Care Teams Metal Work Duct Installer Relationship Specialty Start Date End Date Michael Cardenas MD [address] [address] PCP - General FAMILY PRACTICE 07/26/18 03/07/22 Jonathan Givens MD [address] [facility] [address] [place] [address] PCP - General FAMILY PRACTICE 03/08/22 Ck Thomson MD 3 [facility] [address] [place] [id number] [place] Field Marketing Representative CARDIOVASCULAR DISEASE 07/26/18 documented as of this encounter
--- OUTSIDE RECORDS SUMMARY | 2025-08-22 17:30 | XMS_ITS | Encounter Summary ---
Author Organization [facility] Healthcare Address [address] [place] [address] Care Team Providers Care Collection Systems Consultant Name Role Phone Jonathan Givens MD Primary Care Provider [phone] Encounter Details Date Type Department Care Team (Late st Contact Info) Description 08/22/2025 Results Follow-Up [facility] Family Medicine at [address] [place] [address] [address] [place] [address] Comprehensive metabolic panel, CBC with auto differential, Lipid panel Social History Tobacco Use Types Packs/Day Years Used Date Smoking Tobacco: Former Cigarettes 1.3 25 0 07/23/1998 - 07/23/2023 Smokeless Tobacco: Never AUDIT-C Answer Date Recorded Q1: How often [...] on file Legal Sex Male 12:43 AM CERTIFIED CORPORATE TRAVEL EXECUTIVE Gender Identity Male 11/07/2021 12:33 PM CERTIFIED CORPORATE TRAVEL EXECUTIVE Sexual Orientation Straight 11/07/2021 12 :33 PM CERTIFIED CORPORATE TRAVEL EXECUTIVE documented as of this encounter Plan of Treatment Not on file documented as of this encounter Visit Diagnoses Not on filedocumented in this encounter Care Teams Collection Systems Consultant Relationship Specialty Start Date End Date Jonathan Givens MD PCP - General Family Medicine 02/16/22 documented as of this encounter
--- OUTSIDE RECORDS SUMMARY | 2025-08-22 17:31 | XMS_ITS | Encounter Summary ---
Author Organization [facility] Address [address] [place] [address] Care Team Providers Care Windows Desktop Engineer Name Role Phone Ck Thomson MD Unavailable [phone] Jonathan Givens MD Primary Care Provider [phone] Encounter Details Date Type Department Care Team (Late st Contact Info) Description 05/26/2023 Pretty Simple Message Enc [facility], [address] [address] [employer]ter[employer]orenae[employer]yes[employer], [facility] Provider Echocardiogram Social History Tobacco Use Types Packs/Day Years Used Date Smoking Tobacco: Every Day Cigarettes 1 28 Smokeless Tobacco: Never Comments:20 cigarettes a day Alcohol Use Standard [...] file Not on file Not on file documented as of this encounter Functional Status [...] on filedocumented in this encounter Care Teams Windows Desktop Engineer Relationship Specialty Start Date End Date Jonathan Givens MD [address] [facility] [address] [place] [address] PCP - General FAMILY PRACTICE 03/08/22 Ck Thomson MD 3 [facility] [address] [place] [phone] [place] [employer] Marketing Coordinator CARDIOVASCULAR DISEASE 07/26/18 documented as of this encounter
--- OUTSIDE RECORDS SUMMARY | 2025-08-22 17:31 | XMS_ITS | Encounter Summary ---
Author Organization [facility] Address [address] [place] [address] Care Team Providers Care Wind Operations Manager Name Role Phone Michael Cardenas MD Primary Care Provider [phone] Ck Thomson MD Unavailable [phone] Jonathan Givens MD Primary Care Provider [phone] Encounter Details Date Type Department Care Team (Late st Contact Info) Description 11/06/2019 Abstract [facility] at [address] [address] Chaz Mendoza [place] Social History Tobacco Use [...] Associated Diagnosis Comments COMPREHENSIVE METABOLIC PANEL Routine 09/26/2023 LIPID PANEL Routine 09/26/2023 CBC, MANUAL DIFF Routine 09/26/2023 COMPREHENSIVE METABOLIC PANEL Routine 10/02/2021 LIPID PANEL Routine 10/02/2021 LIPID PANEL Routine 08/27/2020 CK (CPK) Routine 08/27/2020 ALT/SGPT Routine 08/27/2020 COMPREHENSIVE METABOLIC PANEL Routine 02/21/2020 LIPID PANEL Routine 02/21/2020 LIPID PANEL Routine 11/05/2019 D-DIMER, QUANTITATIVE Routine 11/05/2019 documented in this encounter Results * COMPREHENSIVE METABOLIC PANEL (09/26/2023) SODIUM S/P/B 138 GLUCOSE 145 mg/dL AST 32 BUN 16 CREATININE S/P/B 0.87 0.7 - 1.3 CALCIUM S/P/B 9.9 POTASSIUM S/P/B 4.3 CHLORIDE S/P/B 102 ALT 31 GFR ESTIMATE >60 us Default History Genericprovider LABORATORY Edited Result - Final * LIPID PANEL (09/26/2023) CHOLESTEROL 187 TRIGLYCERIDES 104 HDL 54 LDL (CALCULATED) 112 us Default History Genericprovider LABORATORY Edited Result - Final * CBC, MANUAL DIFF (09/26/2023) WBC 6.7 HGB 15.4 HCT 44.9 PLT 307 us Default History Genericprovider LABORATORY Edited Result - Final * (ABNORMAL) COMPREHENSIVE METABOLIC PANEL (10/02/2021) SODIUM S/P/B 141 POTASSIUM S/P/B 4.6 CO2 28 CHLORIDE S/P/B 108 GLUCOSE 128 mg/dL CALCIUM S/P/B 9.4 BUN 21 CREATININE S/P/B 0.98 0.7 - 1.3 EGFR AFR. AMER. 99(A) <=90 EGFR NON-AFR. AMER. 86 <=90 ALKALINE PHOSPHATASE S/P/B 59 ALT 31 AST 21 BILIRUBIN TOTAL S/P/B 0.7 ALBUMIN S/P/B 4.2 3.5 - 5.0 TOTAL PROTEIN S/P/B 6.1 GLOBULIN 1.9 10/02/2021 us Doc [facility] Abstract LABORATORY Final Result * LIPID PANEL (10/02/2021) CHOLESTEROL 156 HDL 58 TRIGLYCERIDES 58 NON HDL CHOLESTEROL 98 LDL (CALCULATED) 85 10/02/2021 us Doc [facility] Abstract LABORATORY Final Result * LIPID PANEL (08/27/2020) CHOLESTEROL 146 100 - 199 HDL 58 >39 TRIGLYCERIDES 88 0 - 149 LDL (CALCULATED) 71 0 - 99 08/27/2020 us Doc [facility] Abstract LABORATORY Final Result * CK (CPK) (08/27/2020) CPK 127 41 - 331 08/27/2020 us Camera [employer] [facility] LABORATORY Edited Resul t - Final * ALT/SGPT (08/27/2020) ALT 26 0 - 44 08/27/2020 [facility] LABORATORY Final Result * LIPID PANEL (02/21/2020) CHOLESTEROL 124 100 - 199 HDL 58 >39 TRIGLYCERIDES 61 0 - 149 LDL (CALCULATED) 54 0 - 99 02/21/2020 us Doc [facility] Abstract LABORATORY Final Result * COMPREHENSIVE METABOLIC PANEL (02/21/2020) SODIUM S/P/B 142 134 - 144 POTASSIUM S/P/B 4.7 3.5 - 5.2 CO2 27 20 - 29 CHLORIDE S/P/B 104 96 - 106 GLUCOSE 131 65 - 99 mg/dL CALCIUM S/P/B 9.7 8.7 - 10.2 BUN 17 6/24 CREATININE S/P/B 1.03 0.7 - 1.3 EGFR AFR. AMER. 94 EGFR NON-AFR. AMER. 81 <=90 ALKALINE PHOSPHATASE S/P/B 71 39 - 117 ALT 30 0 - 44 AST 26 0 - 40 BILIRUBIN TOTAL S/P/B 0.5 3.8 - 4.9 ALBUMIN S/P/B 4.2 3.5 - 5.0 TOTAL PROTEIN S/P/B 6.3 6.0 - 8.5 02/21/2020 [facility] LABORATORY Edited Resul t - Final * D-DIMER, QUANTITATIVE (11/05/2019) D-DIMER 0.24 0.00 - 0.49 11/05/2019 us Doc [facility] Abstract LABORATORY Final Result * LIPID PANEL (11/05/2019) CHOLESTEROL 256 100 - 199 HDL 61 >39 TRIGLYCERIDES 121 0 - 149 LDL (CALCULATED) 171 0 - 99 11/05/2019 us Doc [facility] Abstract LABORATORY Final Result documented in this encounter Visit Diagnoses Not on filedocumented in this encounter Additional Health Concerns Infection Onset Date Last Indicated Resolved Time COVID-19 Rule Out 09/10/2022 09/10/2022 09/10/2022 11:30 AM CDT documented as of this encounter Care Teams Wind Operations Manager Relationship Specialty Start Date End Date Michael Cardenas MD [address] [address] PCP - General FAMILY PRACTICE 07/26/18 03/07/22 Jonathan Givens MD [address] [facility] [address] [place] [address] PCP - General FAMILY PRACTICE 03/08/22 Ck Thomson MD 3 [facility] [address] [place] [phone] [place] Reversal Print Inspector CARDIOVASCULAR DISEASE 07/26/18 documented as of this encounter
--- OUTSIDE RECORDS SUMMARY | 2025-08-22 17:31 | XMS_ITS | Encounter Summary ---
Author Organization [facility] Address [address] [place] [address] Care Team Providers Care Marklogic Developer Name Role Phone Ck Thomson MD Unavailable [phone] Jonathan Givens MD Primary Care Provider [phone] Encounter Details Date Type Department Care Team (Late st Contact Info) Description 09/14/2022 Zylun Staffing Message Enc [facility] [address] [facility], [address] [place], [place] [phone] Beth Jarvis PA 3 [facility] [address] [place], [place] [id number] Appointment Date Change Social History Tobacco Use Types Packs/Day Years [...] suspected to have Coronavirus/COVID-19? No / Unsure 09/10/2022 10:19 AM CDT documented as of this encounter [...] Mathias RN Active documented in this encounter Progress Notes * ROMY Paz - 09/14/2022 10:41 AM CST Hi, Can you please move this patients follow up with me to to coordinate with Dr. Thomson? ORK ENGINEERING ADVISOR documented in this encounter Plan of Treatment Not on file documented as of this encounter Visit Diagnoses Not on filedocumented in this encounter Care Teams Marklogic Developer Relationship Specialty Start Date End Date Jonathan Givens MD [address] [facility] [address] [place] [address] PCP - General FAMILY PRACTICE 03/08/22 Ck Thomson MD 3 [facility] [address] [place] [address] Dhruv Retread Technician CARDIOVASCULAR DISEASE 07/26/18 documented as of this encounter
--- OUTSIDE RECORDS SUMMARY | 2025-08-22 17:31 | XMS_ITS | Encounter Summary ---
Author Organization [facility] Address [address] [place] [address] Care Team Providers Care Leaf Fat Scraper Name Role Phone Ck Thomson MD Unavailable [phone] Jonathan Givens MD Primary Care Provider [phone] Encounter Details Date Type Department Care Team (Late st Contact Info) Description 04/25/2023 Chikka Message Enc [facility], [address] [place] [address] Ck Thomson MD 3 [facility] [address] [place] [address] Php Web Developer Social History Tobacco Use Types Packs/Day Years [...] suspected to have Coronavirus/COVID-19? No / Unsure 04/15/2023 9:49 AM CDT documented as of this encounter [...] on filedocumented in this encounter Care Teams Leaf Fat Scraper Relationship Specialty Start Date End Date Jonathan Givens MD [address] [facility] [address] [place] [address] PCP - General FAMILY PRACTICE 03/08/22 Ck Thomson MD 3 [facility] [address] [place] [address] Smoot Hybrid Technologist CARDIOVASCULAR DISEASE 07/26/18 documented as of this encounter
--- OUTSIDE RECORDS SUMMARY | 2025-08-22 17:31 | XMS_ITS | Data Portability ---
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 He is here for cortisone injection both of his knees. Last shots were 3 months ago. He does get good relief from the injections. He is on Voltaren 75 mg b.i.d.. He recently had blood work done from his primary care doctor and I reviewed this and all of his lab work is normal so refill his Voltaren for another 3 months we will check blood work again in 6 months. Previous x-rays have shown that he has moderately severe medial compartment osteoarthritis the right knee and moderate medial compartment osteoarthritis in the left. Physical exam: 58-year-old male alert pleasant. He has mild effusions in both knees. He has significant callus over the anterior aspects of both knees left more than right. 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 He has mild tenderness over the medial joint lines to palpation. He walks well without limp or assistance. Range motion is from 5-135 degrees bilaterally. After ChloraPrep was used on skin 20 mg Kenalog and 3 cc of 0.5% ropivacaine was injected into both knees. Risk infection discussed. Impression: 58-year-old male who has right greater than left osteoarthritis in both knees. Shots and diclofenac are working well for him. We will see him back in 3 months for repeat injection. Not available 05/06/2023 09:29:41 08/08/2023 08/08/2023 Impression: Patient has severe medial compartment osteoarthritis in the right knee moderately severe medial compartment osteoarthritis left knee. He has decided that he is ready to proceed with knee replacement surgery on the right. The he has been taking nonsteroidal anti-inflammatory medication for a long time and getting cortisone shots periodically and they are no longer giving him satisfactory relief. I have discussed knee replacement with him and he was given the Ortho info handout on total knee arthroplasty for his review. I would recommend we check a hemoglobin A1c to make sure it is not greater than 7.5. I discussed with him that I would require that he quit smoking at least 1 month for surgery and he is willing to give up smoking today. The We will need to acquire a cardiac risk assessment from his correspondent Dr. Thomson. He does have some cardiac risk factors such as being a long-term heavy smoker, high cholesterol, hypertension, swelling in his legs which may be from his heart and paroxysmal SVT. We will want to get a copy of the Recent cardiac echo report which was done at [facility]. I discussed with him that he will have numbness lateral to the incision and that patients often times report difficulty kneeling after knee replacement which may be problematic for his job which does involve a fair amount of kneeling to trim work and he may need to delegate that type of painting or to a colleague. I explained that some patients have sensitivity in the front of the knee after knee replacement surgery. Risk of complications were discussed. Risk of infection was reviewed. Because he will have been a recent smoker, we will plan on set 10 days of oral antibiotics after surgery to minimize risk of infection. He has no history of DVT. I explained my preference for using Eliquis for 2 weeks followed by baby aspirin twice daily for 4 weeks after surgery. He does not take aspirin now. He states that his teeth are in good condition now. He had a root canal couple of months ago and this is healing nicely and he just recently saw his dentist. I explained that we would want him to take antibiotics before dental work in the future. risk of stiffness instability fracture component loosening and need for revision surgery was discussed. Risk of nerve injury bleeding transfusion and medical complications such as heart attack stroke pulmonary embolism and were discussed. his questions were answered and we will schedule this for him in the near future. Plan is right total knee arthroplasty in cortisone shot in his left knee at time of surgery. 40 minutes spent the is patient more than half the time spent [id number] care Not available 08/27/2023 18:34:59 10/21/2023 10/21/2023 patient returns now approximately 10 days after right total knee arthroplasty. He was scheduled come in next Tuesday 3 days from today but he is here with his . He is doing remarkably well. He has been walking without gait aid the entire time. His wound is healing quickly and looks completely sealed. He was not able to keep the Mepilex dressing from falling off his so it is open to the air right now. He is wearing shorts. He looks fine. He has mild swelling around the knee minimal swelling in the calf. No foot swelling. His range of motion from 5-135. He has been going to physical therapy. I recommended that he start a baby aspirin chewable 81 mg 1 tablet twice daily as soon as his Eliquis regimen is completed and I have given written instructions on that. I will be seen back in another 2 weeks assess his progress if he has any problems the meantime he will call. She Not available 10/21/2023 10:05:51 11/23/2023 11/23/2023 HPI: Patient returns. He is 6 weeks out from right total knee arthroplasty. Overall doing. Has occasional ache or soreness in it but overall he is extremely happy with the way his knee is feeling. He has been back to work and is comfortable. He does limit is work at this point. He will stop when the knee starts getting a little bit sore. He has been taking his aspirin twice a day. Physical exam: 58-year-old male alert pleasant. He is walking very well today. Incision is well healed. Range of motion is from 0-135 degrees. There is no increased swelling in either lower extremity. He has excellent stability in both flexion extension. Impression: 58-year-old male who is doing very well 6 weeks out right total knee arthroplasty. I encouraged him to continue with his home exercise program for the next 6 months. He will stop the baby aspirin twice a day and any other medication that we put him on. He did have a cortisone injection in the left knee at the time surgery in this can be repeated at 3 month gennaro he will keep that in mind. At this point left knee is actually doing very well. He will continue to increase activities as tolerated. We will see him back his 1 year anniversary or sooner if problems Not available 11/23/2023 10:25:15 01/11/2024 01/11/2024 HPI: Patient returns. He is here for cortisone injection into the left knee. He has moderate to moderately severe medial compartment osteoarthritis. He had a shot 3 months ago which is helping. His right total knee arthroplasty is doing very well and he is very happy with the results with it. Physical exam: Patient's left knee he has a [id number] effusion. Range of motion is from 5-135 degrees. Mild tenderness over the medial joint line palpation mild patellofemoral grind. No lateral joint line tenderness. After Betadine and alcohol prep 20 mg Kenalog and 3 cc of 0.5% ropivacaine was injected into the left knee. Impression: Patient has moderate to moderately severe medial compartment osteoarthritis left knee. Shots continue to give him good relief. We will see him in 3 months. Not available 01/11/2024 11:17:17 Plan of Treatment Reminders Order Date Submit Date Provider Last Modified By Organization Details Last Modified Time Details Appointments None recorded. Lab None recorded. Referral None recorded. Procedures injection/a spiration joint/bursa (PROC) - in office procedure, administere d by provider 2023 024 In-Office Order, Internal Use Only DO Not Attach Compendium DO Not Attach Compendium, Do Not Delete/merge, [id number] 11:08:32 injection/a spiration joint/bursa (PROC) - in office procedure, administere d by provider 2022 023 [email or web address] In-Office Order, Internal Use Only DO Not Attach Compendium DO Not Attach Compendium, Do Not Delete/merge, [id number] 3 08:51:10 Surgeries None recorded. Imaging XR, knee 2023 024 [email or web address] [facility] [place], [address], [place], [address], 4 07:35:20 XR, knee 2022 023 [email or web address] [facility] [place], [address], [place], [address], 3 12:17:26 Medication Orders Kenalog 10 mg/mL suspension for injection [address] [id number], [address] [place], [place], [id number], 4 14:13:50 ropivacaine (PF) 5 mg/mL (0.5 %) injection solution 2023 024 [address] [id number], [address] [place], [place], [id number], 4 14:13:50 Kenalog 10 mg/mL suspension for injection 2022 023 [id number], [address] [place], [place], [id number], 3 13:58:48 ropivacaine (PF) 5 mg/mL (0.5 %) injection solution 2022 023 [id number], [address] [place], [place], [id number], 3 13:59:23 Patient TargetsNo targets recorded. Patient InstructionsNo instructions recorded. Reason for Referral None Reported. Results Created Date Observation Date Name Description Value Unit Range Abnormal Flag Note LastModifiedBy Organization Detail LastModifiedTime 09/26/2009/26/2023 CBC/C OMPLE TE BLD COUNT W/DIF F white blood cells 6.7 x10'3 /uL 4.2-10 .8 Not Available [facility] (Lab) [address] [place], [address], 09/26/2023 09:50:27 09/26/20 23 09/26/2023 CBC/C OMPLE TE BLD COUNT W/DIF F red blood cells 5.08 x10'6 /uL 4.10-5 .80 Not Available [facility] (Lab) [address] [place], [address], 09/26/2023 09:50:27 09/26/20 23 09/26/2023 CBC/C OMPLE TE BLD COUNT W/DIF F hemoglobin 15.4 g/dL 13.2-1 7.0 Not Available [facility] (Lab) [address] [place], [address], 09/26/2023 09:50:27 09/26/20 23 09/26/2023 CBC/C OMPLE TE BLD COUNT W/DIF F hematocrit 44.9 % 39.3-5 0.0 Not Available [facility] (Lab) [address] [place], [address], 09/26/2023 09:50:27 09/26/20 23 09/26/2023 CBC/C OMPLE TE BLD COUNT W/DIF F mean red cell volume 88.4 fL 80.0-9 7.0 Not Available [facility] (Lab) [address] [place], [address], 09/26/2023 09:50:27 09/26/20 23 09/26/2023 CBC/C OMPLE TE BLD COUNT W/DIF F mean red cell hemoglobin 30.3 pg 27.0-3 3.0 Not Available [facility] (Lab) [address] [place], [address], 09/26/2023 09:50:27 09/26/20 23 09/26/2023 CBC/C OMPLE TE BLD COUNT W/DIF F mean RBC HGB concentratio n 34.3 g/dL 31.0-3 6.0 Not Available [facility] (Lab) [address] [place], [address], 09/26/2023 09:50:27 09/26/2009/26/2023 CBC/C OMPLE TE BLD COUNT W/DIF F red cell distribution width 12.0 % 11.8-1 5.5 Not Available [facility] (Lab) [address] [place], [address], 09/26/2023 09:50:27 09/26/20 23 09/26/2023 CBC/C OMPLE TE BLD COUNT W/DIF F platelets 307 x10'3 /uL 150-40 0 Not Available [facility] (Lab) [address] [place], [address], 09/26/2023 09:50:27 09/26/20 23 09/26/2023 CBC/C OMPLE TE BLD COUNT W/DIF F mean platelet volume 9.2 fL 9.0-12 .4 Not Available [facility] (Lab) [address] [place], [address], 09/26/2023 09:50:27 09/26/20 23 09/26/2023 CBC/C OMPLE TE BLD COUNT W/DIF F neutrophils 61.3 % 39.0-7 2.0 Not Available [facility] (Lab) [address] [place], [address], 09/26/2023 09:50:27 09/26/20 23 09/26/2023 CBC/C OMPLE TE BLD COUNT W/DIF F lymphocytes 26.6 % 16.0-4 7.0 Not Available [facility] (Lab) [address] [place], [address], 09/26/2023 09:50:27 09/26/20 23 09/26/2023 CBC/C OMPLE TE BLD COUNT W/DIF F monocytes 9.4 % 5.0-12 .0 Not Available [facility] (Lab) [address] [place], [address], 09/26/2023 09:50:27 09/26/2009/26/2023 CBC/C OMPLE TE BLD COUNT W/DIF F eosinophils 1.2 % 1.0-7. 0 Not Available [facility] (Lab) [address] [place], [address], 09/26/2023 09:50:27 09/26/20 23 09/26/2023 CBC/C OMPLE TE BLD COUNT W/DIF F basophils 0.9 % 0.0-2. 0 Not Available [facility] (Lab) [address] [place], [address], 09/26/2023 09:50:27 09/26/20 23 09/26/2023 CBC/C OMPLE TE BLD COUNT W/DIF F immature granulocytes 0.6 % 0.00-0 .50 high Not Available [facility] (Lab) [address] [place], [address], 09/26/2023 09:50:27 09/26/20 23 09/26/2023 CBC/C OMPLE TE BLD COUNT W/DIF F neutrophils, absolute count 4.09 x10'3 /uL 1.5-8. 0 Not Available [facility] (Lab) [address] [place], [address], 09/26/2023 09:50:27 09/26/20 23 09/26/2023 CBC/C OMPLE TE BLD COUNT W/DIF F lymphocytes, absolute count 1.78 x10'3 /uL 1.07-3 .43 Not Available [facility] (Lab) [address] [place], [address], 09/26/2023 09:50:27 09/26/20 23 09/26/2023 CBC/C OMPLE TE BLD COUNT W/DIF F monocytes, absolute count 0.63 x10'3 /uL 0.29-0 .99 Not Available [facility] (Lab) [address] [place], [address], 09/26/2023 09:50:27 09/26/20 23 09/26/2023 CBC/C OMPLE TE BLD COUNT W/DIF F eosinophils, absolute count 0.08 x10'3 /uL 0.02-0 .53 Not Available [facility] (Lab) [address] [place], [address], 09/26/2023 09:50:27 09/26/20 23 09/26/2023 CBC/C OMPLE TE BLD COUNT W/DIF F basophils, absolute count 0.06 x10'3 /uL 0.01-0 .08 Not Available [facility] (Lab) [address] [place], [address], 09/26/2023 09:50:27 09/26/20 23 09/26/2023 CBC/C OMPLE TE BLD COUNT W/DIF F immature granulocytes ,absolute 0.04 x10'3 /uL 0.00-0 .05 Not Available [facility] (Lab) [address] [place], [address], 09/26/2023 09:50:27 09/26/20 23 09/26/2023 CBC/C OMPLE TE BLD COUNT W/DIF F nucleated red blood cells 0.0 % -0 Not Available [facility] (Lab) [address] [place], [address], 09/26/2023 09:50:27 09/26/20 23 09/26/2023 CBC/C OMPLE TE BLD COUNT W/DIF F NRBC# 0.00 x10'3 /uL Not Available [facility] (Lab) [address] [place], [address], 09/26/2023 09:50:27 09/26/20 23 09/26/2023 COMPR EHENS JULIAN METAB OLIC PANEL sodium 138 mmol/ L 137-14 5 Not Available [facility] (Lab) [address] [place], [address], 09/26/2023 10:24:35 09/26/20 23 09/26/2023 COMPR EHENS JULIAN METAB OLIC PANEL potassium 4.3 mmol/ L 3.5-5. 1 Not Available [facility] (Lab) [address] [place], [address], 09/26/2023 10:24:35 09/26/20 23 09/26/2023 COMPR EHENS JULIAN METAB OLIC PANEL chloride 102 mmol/ L 98-107 Not Available [facility] (Lab) [address] [place], [address], 09/26/2023 10:24:35 09/26/20 23 09/26/2023 COMPR EHENS JULIAN METAB OLIC PANEL carbon dioxide 28 mmol/ L 22-30 Not Available [facility] (Lab) [address] [place], [address], 09/26/2023 10:24:35 09/26/20 23 09/26/2023 COMPR EHENS JULIAN METAB OLIC PANEL anion gap 12.3 mmol/ L 14-22 low Not Available [facility] (Lab) [address] [place], [address], 09/26/2023 10:24:35 09/26/20 23 09/26/2023 COMPR EHENS JULIAN METAB OLIC PANEL glucose 145 mg/dL 70-99 high Not Available [facility] (Lab) [address] [place], [address], 09/26/2023 10:24:35 09/26/20 23 09/26/2023 COMPR EHENS JULIAN METAB OLIC PANEL BUN 16 mg/dL 8-19 Not Available [facility] (Lab) [address] [place], [address], 09/26/2023 10:24:35 09/26/20 23 09/26/2023 COMPR EHENS JULIAN METAB OLIC PANEL creatinine 0.87 mg/dL 0.66-1 .25 Not Available [facility] (Lab) [address] [place], [address], 09/26/2023 10:24:35 09/26/20 23 09/26/2023 COMPR EHENS JULIAN METAB OLIC PANEL GFR >60 Refer ence Range : Har[place]on ge GFR Healt hy Adult : >60 mL/mi n/1.7 3 m2 Chron ic Kidne y Disea se: 15-60 mL/mi n/1.7 3 m2 Kidne y Failu re: <15/m L/min /1.73 m2 www.n iddk. nih.g ov The MDRD study equat ion has not been valid ated in child steffi <18 years of age; pregn ant women ; the elder ly >85 years of age; or in some racia l or ethni c subgr oups, such as Hispa nics. Outsi de the valid ated antonio eters , estim ated GFR is less accur ate, requi ring clini vicenta judgm ent on a case- by-ca se basis . Clini vicenta inter preta tion for other races and ages must be made by the clini sonia. The MDRD study equat ion has not been valid ated for the evalu ation of serum creat inine relat ed to nutri reggie l statu s or medic ation usage . For perso ns <18 years of age, a pedia tric GFR calcu lator is avail able on the F websi te: https ://terra fisher.zaria de la rosa.o rg/pr ofess ional s/kdo qi/gf r_cal culat or Not Available [facility] (Lab) [address] [place], [address], 09/26/2023 10:24:35 09/26/20 23 09/26/2023 COMPR EHENS JULIAN METAB OLIC PANEL alkaline phosphatase 59 U/L 38-126 Not Available [facility] (Lab) [address] [place], [address], 09/26/2023 10:24:35 09/26/20 23 09/26/2023 COMPR EHENS JULIAN METAB OLIC PANEL alanine aminotransfe rase 31 U/L 0-50 Not Available [facility] (Lab) [address] [place], [address], 09/26/2023 10:24:35 09/26/20 23 09/26/2023 COMPR EHENS JULIAN METAB OLIC PANEL aspartate aminotransfe rase 32 U/L 15-46 Not Available [facility] (Lab) [address] [place], [address], 09/26/2023 10:24:35 09/26/20 23 09/26/2023 COMPR EHENS JULIAN METAB OLIC PANEL bilirubin, total 0.60 mg/dL 0.20-1 .30 Not Available [facility] (Lab) [address] [place], [address], 09/26/2023 10:24:35 09/26/20 23 09/26/2023 COMPR EHENS JULIAN METAB OLIC PANEL calcium 9.9 mg/dL 8.4-10 .2 Not Available [facility] (Lab) [address] [place], [address], 09/26/2023 10:24:35 09/26/20 23 09/26/2023 COMPR EHENS JULIAN METAB OLIC PANEL total protein 7.1 g/dL 6.3-8. 2 Not Available [facility] (Lab) [address] [place], [address], 09/26/2023 10:24:35 09/26/20 23 09/26/2023 COMPR EHENS JULIAN METAB OLIC PANEL albumin 4.3 g/dL 3.4-5. 0 Not Available [facility] (Lab) [address] [place], [address], 09/26/2023 10:24:35 09/26/20 23 09/26/2023 COMPR EHENS JULIAN METAB OLIC PANEL globulin 2.8 g/dL 2.6-4. 2 Not Available [facility] (Lab) [address] [place], [address], 09/26/2023 10:24:35 09/26/20 23 09/26/2023 COMPR EHENS JULIAN METAB OLIC PANEL A/G ratio 1.5 ratio 1.0-2. 0 Not Available [facility] (Lab) [address] [place], [address], 09/26/2023 10:24:35 09/26/20 23 09/26/2023 MRSA/ STAPH AUREU S, NASAL , PCR MRSA, nasal NEGATI VE Not Available [facility] (Lab) [address] [place], [address], 09/26/2023 11:19:28 09/26/20 23 09/26/2023 MRSA/ STAPH AUREU S, NASAL , PCR staph aureus, nasal NEGATI VE Not Available [facility] (Lab) [address] [place], [address], 09/26/2023 11:19:28 09/26/20 23 09/26/2023 ABO/R H CONFI RMATI ON patient ABO group and Rh O POSITI VE Not Available [facility] (Lab) [address] [place], [address], 09/26/2023 12:14:19 09/27/20 23 09/27/2023 TYPE AND SCREE N patient ABO group and Rh O POSITI VE Not Available [facility] (Lab) [address] [place], [address], 09/27/2023 18:19:01 11/09/27/2023 TYPE AND SCREE N patient antibody screen NEGATI VE Not Available [facility] (Lab) [address] [place], [address], 09/27/2023 18:19:01 10/12/2010/12/2023 BASIC METAB OLIC PANEL sodium 136 mmol/ L 137-14 5 low Not Available [facility] (Lab) [address] [place], [address], 10/12/2023 08:28:13 10/12/20 23 10/12/2023 BASIC METAB OLIC PANEL potassium 4.5 mmol/ L 3.5-5. 1 Not Available [facility] (Lab) [address] [place], [address], 10/12/2023 08:28:13 10/12/20 23 10/12/2023 BASIC METAB OLIC PANEL chloride 105 mmol/ L 98-107 Not Available [facility] (Lab) [address] [place], [address], 10/12/2023 08:28:13 10/12/20 23 10/12/2023 BASIC METAB OLIC PANEL carbon dioxide 26 mmol/ L 22-30 Not Available [facility] (Lab) [address] [place], [address], 10/12/2023 08:28:13 10/12/20 23 10/12/2023 BASIC METAB OLIC PANEL anion gap 9.5 mmol/ L 14-22 low Not Available [facility] (Lab) [address] [place], [address], 10/12/2023 08:28:13 10/12/20 23 10/12/2023 BASIC METAB OLIC PANEL glucose 119 mg/dL 70-99 high Not Available [facility] (Lab) [address] [place], [address], 10/12/2023 08:28:13 10/12/2010/12/2023 BASIC METAB OLIC PANEL BUN 20 mg/dL 8-19 high Not Available [facility] (Lab) [address] [place], [address], 10/12/2023 08:28:13 10/12/20 23 10/12/2023 BASIC METAB OLIC PANEL creatinine 0.90 mg/dL 0.66-1 .25 Not Available [facility] (Lab) [address] [place], [address], 10/12/2023 08:28:13 10/12/20 23 10/12/2023 BASIC METAB OLIC PANEL GFR >60 Refer ence Range : Harbeson ge GFR Healt hy Adult : >60 mL/mi n/1.7 3 m2 Chron ic Kidne y Disea se: 15-60 mL/mi n/1.7 3 m2 Kidne y Failu re: <15/m L/min /1.73 m2 www.n iddk. nih.g ov The MDRD study equat ion has not been valid ated in child steffi <18 years of age; pregn ant women ; the elder ly >85 years of age; or in some racia l or ethni c subgr oups, such as Histx nics. Outsi de the valid ated antonio eters , estim ated GFR is less accur ate, requi ring clini vicenta judgm ent on a case- by-ca se basis . Clini vicenta inter preta tion for other races and ages must be made by the clini sonia. The MDRD study equat ion has not been valid ated for the evalu ation of serum creat inine relat ed to nutri reggie l statu s or medic ation usage . For perso ns <18 years of age, a pedia tric GFR calcu lator is avail able on the NK[facility] websi te: https ://terra fisher.zaria de la rosa.o rg/pr ofess ional s/kdo qi/gf r_cal culat or Not Available [facility] (Lab) [address] [place], [address], 10/12/2023 08:28:13 10/12/20 23 10/12/2023 BASIC METAB OLIC PANEL calcium 8.8 mg/dL 8.4-10 .2 Not Available [facility] (Lab) [address] [place], [address], 10/12/2023 08:28:13 10/12/20 23 10/12/2023 CBC W/O DIFFE RENTI AL white blood cells 11.5 x10'3 /uL 4.2-10 .8 high Not Available [facility] (Lab) [address] [place], [address], 10/12/2023 08:47:22 10/12/20 23 10/12/2023 CBC W/O DIFFE RENTI AL red blood cells 3.82 x10'6 /uL 4.10-5 .80 low Not Available [facility] (Lab) [address] [place], [address], 10/12/2023 08:47:22 10/12/20 23 10/12/2023 CBC W/O DIFFE RENTI AL hemoglobin 11.6 g/dL 13.2-1 7.0 low Not Available [facility] (Lab) [address] [place], [address], 10/12/2023 08:47:22 10/12/20 23 10/12/2023 CBC W/O DIFFE RENTI AL hematocrit 35.3 % 39.3-5 0.0 low Not Available [facility] (Lab) [address] [place], [address], 10/12/2023 08:47:22 10/12/20 23 10/12/2023 CBC W/O DIFFE RENTI AL mean red cell volume 92.4 fL 80.0-9 7.0 Not Available [facility] (Lab) [address] [place], [address], 10/12/2023 08:47:22 10/12/20 23 10/12/2023 CBC W/O DIFFE RENTI AL mean red cell hemoglobin 30.4 pg 27.0-3 3.0 Not Available [facility] (Lab) [address] [place], [address], 10/12/2023 08:47:22 10/12/20 23 10/12/2023 CBC W/O DIFFE RENTI AL mean RBC HGB concentratio n 32.9 g/dL 31.0-3 6.0 Not Available [facility] (Lab) [address] [place], [address], 10/12/2023 08:47:22 10/12/20 23 10/12/2023 CBC W/O DIFFE RENTI AL red cell distribution width 12.6 % 11.8-1 5.5 Not Available [facility] (Lab) [address] [place], [address], 10/12/2023 08:47:22 10/12/20 23 10/12/2023 CBC W/O DIFFE RENTI AL platelets 268 x10'3 /uL 150-40 0 Not Available [facility] (Lab) [address] [place], [address], 10/12/2023 08:47:22 10/12/20 23 10/12/2023 CBC W/O DIFFE RENTI AL mean platelet volume 10.5 fL 9.0-12 .4 Not Available [facility] (Lab) [address] [place], [address], 10/12/2023 08:47:22 08/08/20 23 XR, knee No observ ation record ed. [email or web address] [facility] [address], [place], [address], 08/27/2023 18:25:08 10/04/20 23 05/25/2023 pharm acolo gic stres s echoc ardio gram No observ ation record ed. [email or web address] Not Available 2022 10:14:54 10/04/20 23 09/26/2023 geovanna stevenson am No observ ation record ed. [email or web address] Not Available 2022 10:15:23 10/11/20 23 10/11/2023 XR, knee, 1 or 2 view VON [facility] [address] [facility] [place] [address] Patien t Name: BRYCE SHELLEY Access ion #: [id number] Sex: M : 1964 6 Dictat ed By: Madi Delgado Attend ing Physic rafael: FEDERICO DOW Orderi ng Physic rafael: FEDERICO DOW Exam Date: Exam Name: XR KNEE RT 2V Admitt ing Diagno sis(es ): Right knee radiog raph CLINIC AL INDICA TION: Rt total knee arthro plasty TECHNI QUE: 2 radiog raphic views of the right knee were obtain ed. Compar jerod: None FINDIN GS: Post right knee arthro plasty . There is no eviden ce of acute fractu re or disloc ation. The visual ized joint space is well mainta ined. The alignm ent is anatom ical. Small volume gas and fluid in the joint space IMPRES LYNNETTE: Expect ed findin gs post right knee arthro plasty . Electr onical ly Signed by: Madi Delgado at 2022 13:20: 05 PM Page 1 [email or web address] [facility] (Imaging) [address] [place], [address], 10/11/2023 15:37:36 11/23/19 24 XR, knee No observ ation record ed. [facility] [address], [place], [address], 11/23/2023 10:23:40 Result Notes Documentation Provider Name and Address Organization Details Recorded Time Xr, Knee, 1 Or 2 View : [facility] [address] [place] [address] Patient Name: BRYCE WARD Sex: M : 1965 Dictated By: Elder Delgado Attending Physician: FEDERICO HINKLE Ordering Physician: FEDERICO HINKLE Exam Date: Exam Name: XR KNEE RT 2V Admitting Diagnosis(es): Right knee radiograph CLINICAL INDICATION: Rt total knee arthroplasty TECHNIQUE: 2 radiographic views of the right knee were obtained. Comparison: None FINDINGS: Post right knee arthroplasty. There is no evidence of acute fracture or dislocation. The visualized joint space is well maintained. The alignment is anatomical. Small volume gas and fluid in the joint space IMPRESSION: Expected findings post right knee arthroplasty. Page 1 ELIOT Velazquez, [place] [facility] 10/11/2023 15:37:36 Problems Name Problem SNOMED Code Status Onset Date Resolution Date Notes Provider Name and Address Organization Details Recorded Time Osteoarthr itis 972930284 Active Not Available [facility] 3 13:51:51 Bicipital tenosynovi tis 62757293 Active Not Available [facility] 3 13:51:52 Disorder of rotator cuff 334161097 Active Not Available [facility] 3 13:51:52 Carpal tunnel syndrome 77922319 Active Not Available [facility] 3 13:51:52 Osteoarthr itis of shoulder region 07610962 Active Not Available [facility] 3 13:51:52 Pain of bilateral knee joints 2267059898738 04 Active 2022 ELIOT Velazquez null, [place] - [facility] 3 09:14:16 Bilateral osteoarthr itis of knees 9538666754900 07 Active 2022 ELIOT Velazquez, [place] - [facility] 3 08:50:18 Type 2 diabetes mellitus without complicati on 731141052 Active 2022 TOOTIE Bright, [facility] 3 15:28:37 Osteoarthr itis of right knee joint 2128366380517 00 Active 2022 Sharrijaquelin Roy CMA null, [facility] 3 12:36:32 Osteoarthr itis of left knee joint 8338218283951 09 Active 2023 Majo ELIOT Lozada null, [facility] 4 11:08:20 Problem Notes None recorded. Procedures Surgical History Date Name Laterality Status Provider Name and Address Organization Details Recorded Time Rotator cuff surgery completed Not Available [facility] 01/05/2023 13:51:33 Carpal tunnel completed Not Available [facility] 01/05/2023 13:51:33 Vasectomy completed Not Available [facility] 0 01/05/2023 13:51:33 Imaging Results None recorded. Procedure Notes None recorded. Medical Equipment None Reported. Allergies Allergen ID Allergen Name Allergen Category Reaction Reaction Severity Criticality Documentation Date Start Date Code Code System Note Provider Name and Address Organization Details Recorded Time 03908 Product containin g penicilli n (product) medicatio n Not available Not available Not available 01/05/2023 69961 8001 SNOMED Not Available [facility] 13:53:47 Medications Name Sig Start Date Stop Date Status Note LastModified by Organization Details LastModified Time celecoxib 200 mg capsule TAKE 1 CAPSULE BY MOUTH EVERY DAY 11/23 completed Not Available Not Available Not Available atorvastati n 40 mg tablet TAKE 1 TABLET BY MOUTH EVERYDAY AT BEDTIME 08/08 completed Not Available Not Available Not Available bupropion HCl SR 150 mg tablet,12 hr sustained-r elease TAKE 1 TABLET BY MOUTH EVERY MORNING X3DAYS, THEN INCREASE TO 1 TAB TWICE DAILY 07/30 completed Not Available Not Available Not Available prednisone 10 mg tablet 08/08 completed Not Available Not Available Not Available doxycycline hyclate 100 mg capsule 08/08 completed Not Available Not Available Not Available clindamycin HCl 300 mg capsule TAKE 1 CAPSULE BY MOUTH FOUR TIMES DAILY. active Not Available Not Available No t Available polyethylen e glycol 3350 17 gram oral powder packet 11/23 completed Not Available Not Available Not Available azithromyci n 250 mg tablet TAKE 2 TABLETS BY MOUTH FOR 1 DAY THEN TAKE 1 TABLET BY MOUTH DAILY FOR 4 DAYS active Not Available Not Available No t Available ofloxacin 0.3 % eye drops 08/08 completed Not Available Not Available Not Available benzonatate 200 mg capsule 08/08 completed Not Available Not Available Not Available hydrocodone 5 mg-acetamin ophen 325 mg tablet TAKE 2 TABLETS BY MOUTH EVERY 6 HOURS NEEDED FOR PAIN FOR UP TO 7 DAYS 11/23 completed Not Available Not Available Not Available prednisone 20 mg tablet 08/08 completed Not Available Not Available Not Available topiramate 25 mg tablet 08/08 completed Not Available Not Available Not Available acetaminoph en 500 mg tablet TAKE 2 TABLETS BY MOUTH EVERY 6 HOURS. MAX 4000 MG ACETAMINO PHEN TYLENOL PER 24 HOURS 11/23 completed Not Available Not Available Not Available ketorolac 0.5 % eye drops INSTILL 1 DROP IN LEFT EYE EVERY 6 HOURS NEEDED FOR PAIN 08/08 completed Not Available Not Available Not Available tamsulosin 0.4 mg capsule TAKE 1 CAPSULE BY MOUTH AT BEDTIME active Not Available Not Available No t Available Kenalog 10 mg/mL suspension for injection in office 2023 active [facility]: [phone]- [phone] Not Available Not Available Not Available hydrocodone 7.5 mg-acetamin ophen 325 mg tablet TAKE 1 TO 2 TABLETS BY MOUTH EVERY 6 HOURS NEEDED 04/21 completed Not Available Not Available Not Available pantoprazol e 40 mg tablet,ruben yed release TAKE 1 TABLET BY MOUTH EVERY DAY active Not Available Not Available No t Available tobramycin 0.3 % eye drops PLACE 1 DROP IN AFFECTED EYE(S) EVERY 4 HOURS 04/21 completed Not Available Not Available Not Available diclofenac sodium 75 mg tablet,ruben yed release active Not Available Not Available Not Available metoprolol succinate ER 25 mg tablet,exte nded release 24 hr active Not Available Not Available Not Available methylpredn isolone 4 mg tablets in a dose pack FOLLOW PACKAGE DIRECTION S 08/08 completed Not Available Not Available Not Available albuterol sulfate HFA 90 mcg/actuati on aerosol inhaler INHALE 2 PUFFS BY MOUTH EVERY 6 HOURS NEEDED FOR WHEEZING OR SHORTNESS OF BREATH active Not Available Not Available No t Available cefdinir 300 mg capsule TAKE 1 CAPSULE BY MOUTH TWICE DAILY 11/23 completed Not Available Not Available Not Available finasteride 5 mg tablet TAKE 1 TABLET BY MOUTH DAILY active Not Available Not Available No t Available oxycodone 5 mg tablet TAKE 1 TABLET BY MOUTH EVERY 4 HOURS NEEDED active Not Available Not Available No t Available ezetimibe 10 mg tablet active Not Available Not Available Not Available Co Q-10 08/08 completed Not Available Not Available Not Available Motrin 07/30 completed Not Available Not Available Not Available multivitami n 2019 active Not Available Not Available Not Avai lable lidocaine (PF) 10 mg/mL (1 %) injection solution In office injection administe red by the provider 08/08 completed [facility]: [phone]- [phone] Not Available Not Available Not Available oxycodone 10 mg tablet TAKE 1 TABLET BY MOUTH EVERY 4 HOURS 11/23 completed Not Available Not Available Not Available sodium,pota ssium,mag sulfates 17.5 gram-3.13 gram-1.6 gram oral soln MIX AND DRINK DIRECTED 08/08 completed Not Available Not Available Not Available ropivacaine (PF) 5 mg/mL (0.5 %) injection solution in office 2023 active [facility] [phone] -064- [phone] Not Available Not Available Not Available Eliquis 2.5 mg tablet take 1 tab po q 12hr active Not Available Not Available No t Available Stimulant Laxative Plus 8.6 mg-50 mg tablet 11/23 completed Not Available Not Available Not Available FreeStyle Aster 2 Sensor kit 08/08 completed Not Available Not Available Not Available FreeStyle Aster 2 [place] USE DIRECTED 08/08 completed Not Available Not Available Not Available Vitals Date Recorded Body height Provider Name an d Address Organization Details Last Updated DateTime 11/23/2023 172.72 cm ELIOT Velazquez [facility] [employer] [facility] 11/23/2023 09:32:37 Date Recorded Body height Provider Name an d Address Organization Details Last Updated DateTime 01/11/2024 172.72 cm ELIOT Velazquez [facility] [employer] [facility] 01/11/2024 10:19:22 Date Recorded Body height Provider Name an d Address Organization Details Last Updated DateTime 05/06/2023 172.72 cm ELIOT Velazquez [facility] [employer] [facility] 05/06/2023 08:49:59 Date Recorded Body height Provider Name an d Address Organization Details Last Updated DateTime 08/08/2023 172.72 cm ELIOT Velazquez [facility] [employer] [facility] 08/08/2023 13:57:55 Date Recorded Body height Provider Name an d Address Organization Details Last Updated DateTime 10/21/2023 172.72 cm Federico Hinkle MD [address] [place] [address], [facility] [[email or web address] [address], [place], [address], [facility] [employer] [facility] 10/21/2023 09:24:51 Social History Question Answer Notes LastModified by Organizat ion Details LastModified Time Tobacco Smoking Status Current Every Day Smoker Cathy castañeda, [facility] [employer] [facility] 02/04/2023 08:46:30 At What Age Did You Start Smoking Tobacco? 26 [email or web address] Information not available 02/04/2023 How Much Tobacco Do You Smoke? 1 PPD [id number] Information not available 01/05/2023 How Many Years Have You Smoked Tobacco? 30 [email or web address] Information not available 02/04/2023 Sex: Unknown Functional Status Question Answer Note LastModified by Organizat ion Details LastModified Time What is your level of alcohol consumption? Occasional [id number] Information not available 01/05/2023 Mental Status None recorded. Family History Nothing Reported. Medical History No medical history recorded. Past Encounters Encounter ID Performer Location Encounter Start Date Encounter Closed Date Diagnosis/Indication Diagnosis SNOMED-CT Code Diagnosis ICD10 Code Diagnosis IMO Codes Diagnosis Note [id number] ROMY Mccoy [facility] [address] [place] [address] 03/16/2021 00:00:00 03/16/2021 10:26:52 [id number] Federico Hinkle MD [facility] [address] [place] [address] 06/08/2021 00:00:00 06/14/2021 17:57:03 [id number] Federico Hinkle MD [facility] [place] [address] [facility] [place] [address] 07/30/2021 00:00:00 08/23/2021 20:17:55 [id number] Federico Hinkle MD [facility] [address] [place] [address] 09/21/2021 00:00:00 10/03/2021 10:13:55 [id number] Federico Hinkle MD [facility] [address] [place] [address] 02/04/2023 08:40:14 02/04/2023 10:17:01 Pain of bilateral knee joints 8811976715 90473 M25.561 M25.562 [id number] MD [facility] [address] [place] [address] 05/06/2023 08:48:33 05/06/2023 09:56:35 Bilateral osteoarthritis of knees 2574502994 24436 M17.0 [id number] Federico Hinkle MD [facility] [address] [place] [address] 08/08/2023 13:53:14 08/29/2023 12:17:26 Bilateral osteoarthritis of knees 9902815213 71678 M17.0 [id number] Federico Hinkle MD [facility] [address] [place] [address] 10/21/2023 09:22:17 10/21/2023 11:18:10 Bilateral osteoarthritis of knees 0358136570 39461 M17.0 [id number] Federico Hinkle MD [facility] [address] [place] [address] 11/23/2023 09:28:21 11/23/2023 11:01:16 History of right total knee replacement 2913659818 474326 Z96.083 [id number] Federico Hinkle MD [facility] [address] [place] [address] 01/11/2024 10:15:00 01/11/2024 11:45:11 History of right total knee replacement 8156499277 968686 Z96.651 Osteoarthr itis of left knee joint 3063403740 61065 M17.12 Health Concerns Section Related Observation LastModified by Organization Detai ls LastModified Time None Recorded Concern Status LastModified by Organization Details LastModified Time None Recorded Advance Directives Directive None Recorded Payers Insurance Date Sequence Insurance Name Policy Number Policy Downs Covered Member ID Downs Member ID Guarantor Name 01/17/2024 1 SAMMY (PPO) [id number] Lashanda Ward [id number] Bryce Ward 02/04/2023 1 AALIYAH [id number] Lashanda Ward [id number] Bryce Ward Notes Date Note Type Note Provider Name and Address Organization Details Recorded Time 08/08/2023 text/html patient returns. His knees are bothering him a great deal. Xrays today demonstrate [id number] medial compartment osteoarthritis on the right knee both on the AP and PA flexion [place] abuse. He has moderately severe narrowing of the medial compartment of left knee to 2 mm. Previous MRI scan of right knee showed rather severe bone marrow edema medial aspect of medial tibial plateau and moderate degenerative changes in the medial compartment as well as full-thickness cartilage loss and subchondral bone changes in the center of the trochlear groove. His last cortisone shots in both knees were on May 06, 2023 any only had about 4 weeks of relief from the shots. He has been taking Motrin 200 mg tablets 12 per day. He has reached the point where he wants to proceed with total knee replacement on the right knee. He would like to get a cortisone shot in the left knee at the same time. The patient does have a history of mild elevation of his blood sugars. He has never had a hemoglobin A1c and we will check this. He is currently undergoing treatment for paroxysmal supraventricular tachycardia. He had an ablation in July of 2022 which was unsuccessful and he is scheduled for another ablation on August 22. He had an echocardiogram [address] Thomson is his correspondent. He is with [facility]. Patient does smoke cigarettes. He agrees to stop completely today. He realizes that with his heart issues smoking is extremely unwise and detrimental. 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 Federico Hinkle MD [address] [place] [address], [place], [address], [place] [facility] 08/27/2023 18:35:13
--- OUTSIDE RECORDS SUMMARY | 2025-08-22 17:31 | XMS_ITS | Encounter Summary ---
Author Organization [facility] Address [address] [place] [address] Care Team Providers Care Dyslexia Teacher Name Role Phone Ck Thomson MD Unavailable [phone] Jonathan Givens MD Primary Care Provider [phone] Encounter Details Date Type Department Care Team (Late st Contact Info) Description 04/26/2023 Ruth Kunstadter – [employer] Coach Message Enc [facility], [address] [address] [employer], [facility] Provider Lab results Social History Tobacco Use Types Packs/Day Years [...] on filedocumented in this encounter Care Teams Dyslexia Teacher Relationship Specialty Start Date End Date Jonathan Givens MD [address] [facility] [address] [place] [address] PCP - General FAMILY PRACTICE 03/08/22 Ck Thomson MD [address] [facility] [address] [place] [address] [place] [employer] Operations Inspector CARDIOVASCULAR DISEASE 07/26/18 documented as of this encounter
--- OUTSIDE RECORDS SUMMARY | 2025-08-22 17:31 | XMS_ITS | Encounter Summary ---
Author Organization [facility] Address [address] [place] [address] Care Team Providers Care Vaccine Specialist Name Role Phone Ck Thomson MD Unavailable [phone] Jonathan Givens MD Primary Care Provider [phone] Encounter Details Date Type Department Care Team (Late st Contact Info) Description 09/13/2022 [employer] Message [facility], [facility] [address] [place], [place] [id number] Killian Draper MD Three [facility]. [facility] [address] [place] [address] Medication Questions Post SVT Ablation Social History Tobacco Use Types Packs/Day Years [...] documented in this encounter Progress Notes * Shonda Pickett RN - 09/13/2022 11:33 AM CST . ONNEL REPRESENTATIVE documented in this encounter Plan of Treatment Not on file documented as of this encounter Visit Diagnoses Not on filedocumented in this encounter Care Teams Vaccine Specialist Relationship Specialty Start Date End Date Jonathan Givens MD [address] [facility] [address] [place] [address] PCP - General FAMILY PRACTICE 03/08/22 Ck Thomson MD [address] [facility] [address] [place] [address] [place] Dishwashing Machine Repairer CARDIOVASCULAR DISEASE 07/26/18 documented as of this encounter
== END 2025-08-22 16:14 | disposition home or self-care (01) ==
PROVIDERS: Emergency Provider Nurse Practitioner Family; PCP Family Medicine
DX: S61.212A Laceration without foreign body of right middle finger without damage to nail, initial encounter (principal); I48.91 Unspecified atrial fibrillation; I10 Essential (primary) hypertension; Z87.891 Personal history of nicotine dependence; W45.8XXA Other foreign body or object entering through skin, initial encounter; Z23 Encounter for immunization
CPT/HCPCS: 12001; 90471; 90715; 99212; G0463; J2003